=== PATIENT | male | born 1950 | race African-American/Black ===

== ENCOUNTER 2022-07-25 09:23 | Outpatient (CLI) | payer MEDICARE, SELFPAY ==
[2022-07-25 10:38] LABS: Alanine Aminotransferase 15 U/L (6-50); Alkaline Phosphatase 61 U/L (38-126); Anion Gap 7 mmol/L (8-16); Aspartate Amino Transferase 16 U/L (17-59); Bilirubin,Total 1.1 mg/dL (0.2-1.3); Blood Urea Nitrogen 14 mg/dL (9-20); Calcium 8.7 mg/dL (8.4-10.2); Carbon Dioxide 28 mmol/L (22-30); Chloride 103 mmol/L (98-107); Cholesterol 118 mg/dL (0-200); Estimated Glomerular Filt Rate > 60; Glucose 281 mg/dL (65-110); HDL Direct 25 mg/dL; Potassium 3.7 mmol/L (3.4-5.0); Sodium 138 mmol/L (137-145); Triglycerides 181 mg/dL (<150)
[2022-07-25 10:50] LABS: LDL Cholesterol Direct 55 mg/dL
[2022-07-25 11:46] LABS: Folic Acid 6.9 ng/mL (2.76->20)
[2022-07-25 12:13] LABS: Vitamin D 25 Hydroxy 20.6 ng/mL
[2022-07-25 12:23] LABS: Microalbumin Urine Random > 1140.0 mg/L (0-16.7)
== END 2022-07-25 09:24 | disposition home or self-care (01) ==
LOC: ANHLAB 09:35
PROVIDERS: Visit Provider Nurse Practitioner Family
DX: E11.29 Type 2 diabetes mellitus with other diabetic kidney complication (principal); E11.65 Type 2 diabetes mellitus with hyperglycemia; E78.5 Hyperlipidemia, unspecified; I10 Essential (primary) hypertension; R80.9 Proteinuria, unspecified; Z79.4 Long term (current) use of insulin
CPT/HCPCS: 36415; 80053; 80061; 82043; 82306; 82607; 82746; 84443

== ENCOUNTER 2022-10-12 12:56 | Outpatient (CLI) | payer MEDICARE, SELFPAY ==
--- NOTE | ~2022-10-12 | US_ITS ---
US renal BI 10/12/2022 13:49 Procedure: Realtime transabdominal ultrasound of the kidneys and bladder. Indication: Type 2 diabetes Comparison: No prior studies for comparison. Findings: Renal echotexture is normal bilaterally without hydronephrosis, contour deforming mass or r enal calculus. The right kidney measures 10.6 cm and left kidney measures 11.5 cm. Bladder within no rmal limits. Impression: 1: Unremarkable renal ultrasound. No stones, masses or hydronephrosis. Reviewed, dictated and finalized at location A. RNATIONAL ACCOUNT REPRESENTATIVE Impression: 1: Unremarkable renal ultrasound. No stones, masses or hydronephrosis.
[2022-10-12 14:58] LABS: Albumin Level 4.2 g/dL (3.5-5.1); Anion Gap 7 mmol/L (8-16); Blood Urea Nitrogen 9 mg/dL (9-20); Calcium 8.7 mg/dL (8.4-10.2); Carbon Dioxide 28 mmol/L (22-30); Chloride 100 mmol/L (98-107); Estimated Glomerular Filt Rate > 60; Glucose 234 mg/dL (65-110); Phosphorus 3.5 mg/dL (2.5-4.5); Potassium 4.1 mmol/L (3.4-5.0); Sodium 135 mmol/L (137-145)
[2022-10-12 15:08] LABS: Creatinine Urine 126.8 mg/dL
[2022-10-12 15:14] LABS: Sodium Urine Random 86 meq/L
[2022-10-12 15:23] LABS: Eosinophil Urine None Seen % (None Seen)
[2022-10-12 15:30] LABS: Complement C3 139 mg/dL (88-165)
[2022-10-12 15:45] LABS: Total Protein Urine Random 264 mg/dL; Ur Ttl Prot Creatinine Ratio 2.08 mg/mg (0-0.20)
[2022-10-16 17:37] LABS: Albumin 3.7 g/dL (3.8-4.8); Alpha 1 Globulin 0.3 g/dL (0.2-0.3); Alpha 2 Globulin 0.9 g/dL (0.5-0.9); Beta 1 Globulin 0.4 g/dL (0.4-0.6); Gamma Globulin 1.1 g/dL (0.8-1.7); Protein, Total 6.8 g/dL (6.1-8.1)
[2022-10-16 17:59] LABS: Anti Glomerular Basement Memb <1.0 AI (<1.0)
[2022-10-18 09:43] LABS: ANCA Screen Negative (Negative)
[2022-10-19 20:41] LABS: Creatinine, Random Urine 118 mg/dL (20-320); Total Protein/Creatinine Ratio 1593 mg/g creat (25-148)
== END 2022-10-12 12:57 | disposition home or self-care (01) ==
PROVIDERS: PCP Internal Medicine; Visit Provider Internal Medicine Nephrology
DX: E11.29 Type 2 diabetes mellitus with other diabetic kidney complication (principal); R80.8 Other proteinuria; I10 Essential (primary) hypertension
CPT/HCPCS: 36415; 76775; 80069; 82570; 83520; 84155; 84156; 84165; 84166; 84300; 85999; 86036; 86038; 86160; 86225

== ENCOUNTER 2022-12-15 13:30 | Outpatient (CLI) | payer MEDICARE, SELFPAY ==
--- NOTE | ~2022-12-15 | CT_ITS ---
EXAMINATION: CT lung screening DATE: 12/15/2022 14:46 INDICATION: NICOTINE DEPENDENCE TECHNIQUE: Computed tomography (CT) of the chest was performed without intravenous contrast. Addition al 3D reconstructions utilizing coronal maximum intensity projection (MIP) were performed. Automated exposure control and iterative reconstruction technique were employed. The dose-length product was 10 1.75 mGy-cm. COMPARISON: None FINDINGS: 2-3 mm nodule in the superior segment of the left upper lobe. Mild dependent atelectasis in the bilat eral lower lobes. No pneumonia, pulmonary edema or pleural effusion. Heart size normal. Atherosclerot ic coronary artery calcifications. Aortic valve calcification. Additional atherosclerotic calcific a cyst along the normal caliber thoracic aorta. No pathologically enlarged thoracic lymphadenopathy. Vi sualized upper abdomen is unremarkable. Mild thoracic dextrocurvature with moderate spondylosis. Ther e are bridging osteophytes at multiple levels in the spine, consistent with diffuse idiopathic skelet al hyperostosis (DISH). IMPRESSION: 1. Lung-RADS category 2: Benign appearance or behavior. Continue annual screening with noncontrast lo w-dose chest CT in 12 months. Reviewed, dictated and finalized at location A. SERVICE VENDING DRIVER IMPRESSION: 1. Lung-RADS category 2: Benign appearance or behavior. Continue annual screeni ng with noncontrast low-dose chest CT in 12 months.
== END 2022-12-15 13:31 | disposition home or self-care (01) ==
PROVIDERS: PCP Internal Medicine; Visit Provider Internal Medicine
DX: Z12.2 Encounter for screening for malignant neoplasm of respiratory organs (principal); Z87.891 Personal history of nicotine dependence
CPT/HCPCS: 71271

== ENCOUNTER 2023-03-19 11:27 | Outpatient (CLI) | payer MEDICARE, SELFPAY ==
[2023-03-19 12:13] LABS: Albumin Level 4.2 g/dL (3.5-5.1); Anion Gap 4 mmol/L (8-16); Blood Urea Nitrogen 13 mg/dL (9-20); Calcium 9.1 mg/dL (8.4-10.2); Carbon Dioxide 31 mmol/L (22-30); Chloride 106 mmol/L (98-107); Estimated Glomerular Filt Rate > 60; Glucose 147 mg/dL (65-110); Phosphorus 3.6 mg/dL (2.5-4.5); Potassium 4.8 mmol/L (3.4-5.0); Sodium 141 mmol/L (137-145)
[2023-03-19 12:14] LABS: Creatinine Urine 62.2 mg/dL; Total Protein Urine Random 86 mg/dL; Ur Ttl Prot Creatinine Ratio 1.38 mg/mg (0-0.20)
== END 2023-03-19 11:28 | disposition home or self-care (01) ==
LOC: ANHLAB 11:28
PROVIDERS: PCP Internal Medicine; Visit Provider Internal Medicine Nephrology
DX: R80.9 Proteinuria, unspecified (principal); E11.9 Type 2 diabetes mellitus without complications; I10 Essential (primary) hypertension
CPT/HCPCS: 36415; 80069; 82570; 84156

== ENCOUNTER 2023-07-23 12:36 | Outpatient (CLI) | payer MEDICARE, SELFPAY ==
[2023-07-23 13:36] LABS: Creatinine Urine 78.9 mg/dL; Total Protein Urine Random 87 mg/dL
[2023-07-23 14:18] LABS: Albumin Level 4.3 g/dL (3.5-5.1); Anion Gap 4 mmol/L (8-16); Blood Urea Nitrogen 11 mg/dL (9-20); Calcium 9.5 mg/dL (8.4-10.2); Carbon Dioxide 28 mmol/L (22-30); Chloride 107 mmol/L (98-107); Estimated Glomerular Filt Rate > 60; Glucose 91 mg/dL (65-110); Phosphorus 3.7 mg/dL (2.5-4.5); Potassium 4.4 mmol/L (3.4-5.0); Sodium 139 mmol/L (137-145)
== END 2023-07-23 12:37 | disposition home or self-care (01) ==
PROVIDERS: PCP Internal Medicine; Visit Provider Internal Medicine Nephrology
DX: E11.9 Type 2 diabetes mellitus without complications (principal); I10 Essential (primary) hypertension; R80.9 Proteinuria, unspecified
CPT/HCPCS: 36415; 80069; 82570; 84156

== ENCOUNTER 2023-11-27 10:46 | Outpatient (CLI) | payer MEDICARE, SELFPAY ==
[2023-11-27 12:00] LABS: Cholesterol 130 mg/dL (0-200); HDL Direct 30 mg/dL; Triglycerides 179 mg/dL (<150)
[2023-11-27 12:00] LABS: Creatinine Urine 81.3 mg/dL; Total Protein Urine Random 189 mg/dL; Ur Ttl Prot Creatinine Ratio 2.32 mg/mg (0-0.20)
[2023-11-27 12:02] LABS: Anion Gap 7 mmol/L (8-16); Blood Urea Nitrogen 10 mg/dL (9-20); Carbon Dioxide 26 mmol/L (22-30); Chloride 106 mmol/L (98-107); Estimated Glomerular Filt Rate > 60; Glucose 142 mg/dL (65-110); Phosphorus 4.2 mg/dL (2.5-4.5); Potassium 3.7 mmol/L (3.4-5.0); Sodium 139 mmol/L (137-145)
[2023-11-27 12:11] LABS: LDL Cholesterol Direct 70 mg/dL
[2023-11-27 12:32] LABS: Creatinine Urine 84.2 mg/dL
[2023-11-27 13:57] LABS: MALB Creatinine Ratio 799.3 mg/g (0-30)
== END 2023-11-27 10:47 | disposition home or self-care (01) ==
LOC: ANHLAB 10:51
PROVIDERS: PCP Internal Medicine; Referring Provider Internal Medicine; Visit Provider Internal Medicine Nephrology
DX: R80.9 Proteinuria, unspecified (principal); I10 Essential (primary) hypertension; E11.65 Type 2 diabetes mellitus with hyperglycemia; Z79.4 Long term (current) use of insulin
CPT/HCPCS: 36415; 80061; 80069; 82043; 82570; 84156

== ENCOUNTER 2024-03-31 10:29 | Outpatient (CLI) | payer MEDICARE, SELFPAY ==
[2024-03-31 12:04] LABS: Alanine Aminotransferase 10 U/L (6-50); Albumin Level 4.4 g/dL (3.5-5.1); Albumin Level 4.6 g/dL (3.5-5.1); Alkaline Phosphatase 48 U/L (38-126); Anion Gap 11 mmol/L (4-12); Anion Gap 9 mmol/L (4-12); Aspartate Amino Transferase 18 U/L (17-59); Bilirubin,Total 2.3 mg/dL (0.2-1.3); Blood Urea Nitrogen 15 mg/dL (9-20); Calcium 9.6 mg/dL (8.4-10.2); Calcium 9.7 mg/dL (8.4-10.2); Carbon Dioxide 25 mmol/L (22-30); Carbon Dioxide 26 mmol/L (22-30); Chloride 106 mmol/L (98-107); Chloride 107 mmol/L (98-107); Cholesterol 133 mg/dL (0-200); Estimated Glomerular Filt Rate > 60; Glucose 73 mg/dL (65-110); Glucose 75 mg/dL (65-110); HDL Direct 32 mg/dL; Phosphorus 4.2 mg/dL (2.5-4.5); Potassium 3.8 mmol/L (3.4-5.0); Potassium 3.9 mmol/L (3.4-5.0); Sodium 141 mmol/L (137-145); Sodium 143 mmol/L (137-145); Triglycerides 147 mg/dL (<150)
[2024-03-31 12:05] LABS: Hemoglobin A1C 6.8 % (<5.7)
[2024-03-31 12:11] LABS: Creatinine Urine 145.2 mg/dL; Total Protein Urine Random 181 mg/dL; Ur Ttl Prot Creatinine Ratio 1.25 mg/mg (0-0.20)
[2024-03-31 12:16] LABS: LDL Cholesterol Direct 77 mg/dL
[2024-03-31 12:26] LABS: Creatinine Urine 145.9 mg/dL
[2024-03-31 12:29] LABS: Appearance Urine Clear (Clear); Bacteria Urine None Seen /hpf; Bilirubin Urine Negative (Negative); Blood Urine Negative (Negative); Color Urine Yellow (Yellow); Glucose Urine UA 3+ mg/dL (Negative); Ketones Urine 1+ mg/dL (Negative); Leukocyte Esterase Ur Negative LEU/UL (Negative); Need Manual Microscopic Reviewed; Nitrate Urine Negative (Negative); Protein Urine 2+ mg/dL (Negative); RBC Urine 0-2 /hpf (0-2); Squamous Epithelial Cell Urine Few /hpf (Few); WBC Urine 0-5 /hpf (0-3)
[2024-03-31 12:36] LABS: Prostate Specific Antigen 2.1 ng/mL (< OR = 4.0)
[2024-03-31 12:59] LABS: Specific Grav Ur 1.038 (1.001-1.035)
[2024-03-31 13:01] LABS: Add Urine Microscopic? YES
[2024-03-31 14:26] LABS: MALB Creatinine Ratio 516.6 mg/g (0-30); Microalbumin Urine Random 753.7 mg/L (0-16.7)
== END 2024-03-31 10:30 | disposition home or self-care (01) ==
PROVIDERS: PCP Internal Medicine; Referring Provider Internal Medicine; Visit Provider Internal Medicine Nephrology
DX: E11.9 Type 2 diabetes mellitus without complications (principal); I10 Essential (primary) hypertension; R80.9 Proteinuria, unspecified; Z85.46 Personal history of malignant neoplasm of prostate; E78.5 Hyperlipidemia, unspecified
CPT/HCPCS: 36415; 80053; 80061; 80069; 81001; 82043; 82570; 83036; 84153; 84156

== ENCOUNTER 2024-08-04 12:51 | Outpatient (CLI) | payer MEDICARE, SELFPAY ==
[2024-08-04 13:49] LABS: Anion Gap 8 mmol/L (4-12); Blood Urea Nitrogen 14 mg/dL (9-20); Calcium 8.9 mg/dL (8.4-10.2); Carbon Dioxide 26 mmol/L (22-30); Chloride 107 mmol/L (98-107); Estimated Glomerular Filt Rate > 60; Glucose 91 mg/dL (65-110); Phosphorus 3.5 mg/dL (2.5-4.5); Potassium 4.1 mmol/L (3.4-5.0); Sodium 141 mmol/L (137-145)
[2024-08-04 14:10] LABS: Creatinine Urine 67.2 mg/dL; Total Protein Urine Random 82 mg/dL; Ur Ttl Prot Creatinine Ratio 1.22 mg/mg (0-0.20)
== END 2024-08-04 12:52 | disposition home or self-care (01) ==
LOC: ANHLAB 12:55
PROVIDERS: PCP Internal Medicine; Visit Provider Internal Medicine Nephrology
DX: R80.9 Proteinuria, unspecified (principal); E11.9 Type 2 diabetes mellitus without complications; I10 Essential (primary) hypertension
CPT/HCPCS: 36415; 80069; 82570; 84156

== ENCOUNTER 2024-12-29 10:50 | Outpatient (CLI) | payer MEDICARE, SELFPAY ==
[2024-12-29 12:03] LABS: Albumin Level 4.2 g/dL (3.5-5.1); Anion Gap 10 mmol/L (4-12); Blood Urea Nitrogen 13 mg/dL (9-20); Calcium 9.5 mg/dL (8.4-10.2); Carbon Dioxide 24 mmol/L (22-30); Chloride 107 mmol/L (98-107); Estimated Glomerular Filt Rate > 60; Glucose 159 mg/dL (65-110); Phosphorus 4.1 mg/dL (2.5-4.5); Sodium 141 mmol/L (137-145)
[2024-12-29 12:18] LABS: Creatinine Urine 63.6 mg/dL; Total Protein Urine Random 91 mg/dL; Ur Ttl Prot Creatinine Ratio 1.43 mg/mg (0-0.20)
--- OUTSIDE RECORDS SUMMARY | 2024-12-29 12:49 | XMS_ITS | Encounter Summary ---
Author Organization [facility] Address [facility] [place] [address] Care Team Providers Care Sewing Machines Salesperson Name Role Phone Rui Arndt MD Primary Care Provider Encounter Details Date Type Department Care Team (Late st Contact Info) Description 04/27/2014 Abstract [facility] CONVERSION [address] [place] [address] , Generic ConversionMD Social History Tobacco Use Types Packs/Day Years Used Date Smoking Tobacco: Never Assessed Sex and Gender Information Value Date Recorded Sex Assigned at Not on file Legal Sex Male 8:03 PM CDT Gender Identity Not on file Sexual Orientation Not on file documented as of this encounter Plan of Treatment Not on file documented as of this encounter Visit Diagnoses Not on filedocumented in this encounter Care Teams Sewing Machines Salesperson Relationship Specialty Start Date End Date Rui Arndt MD PCP - General INTERNAL MEDICINE 04/03/20 documented as of this encounter
--- OUTSIDE RECORDS SUMMARY | 2024-12-29 12:49 | XMS_ITS | Clinical Summary ---
Author Organization [facility] Address [address] [place] [id number] Care Team Providers Care Food Service Ambassador Name Role Phone Rui Arndt MD Primary Care Provider [phone] Allergies No known active allergies Medications clopidogreL (PLAVIX) 75 mg tablet Take 1 tablet (75 mg total) by mouth daily 09/06/20 22 Active dulaglutide (TRULICITY) 1.5 mg/0.5 mL pen injector Inject 0.5 mL (1.5 mg total) under the skin once a week Active Jardiance 25 mg tablet Take 1 tablet (25 mg total) by mouth daily 11/12/19 24 Active glimepiride (AMARYL) 2 mg tablet Take 0.5 tablets (1 mg total) by mouth daily before breakfast 10/17/19 24 Active irbesartan (AVAPRO) 300 mg tablet Take 1 tablet (300 mg total) by mouth daily 08/09/20 22 Active metFORMIN (GLUCOPHAGE) 500 mg tablet Take 1 tablet (500 mg total) by mouth daily with breakfast 10/30/19 24 Active metoprolol XL (TOPROL-XL) 50 mg extended release tablet Take 1 tablet (50 mg total) by mouth daily 09/14/20 22 Active rosuvastatin (CRESTOR) 40 mg tablet Take 1 tablet (40 mg total) by mouth daily 09/08/20 22 Active Ozempic 1 mg/dose (4 mg/3 mL) pen injector injection Inject 1 mg under the skin every 7 days 10/31/19 24 Active cholecalcifero l (VITAMIN D-3) 2000 unit capsule cholecalciferol (vitamin D3) 50 mcg (2,000 unit) capsule Take by oral route. Activ e glyburide-metf ormin (GLUCOVANCE) 5-500 mg per tablet glyburide 5 mg-metformin 500 mg tablet TAKE 2 TABLETS BY MOUTH TWICE A DAY Active sildenafiL (VIAGRA) 100 mg tablet TAKE 1 TABLET BY MOUTH an hour before sexual activity NEEDED 12/25/19 24 Active polyethylene glycol 236-22.74-6.74 -5.86 gram solution 05/09/20 24 Active Baqsimi 3 mg/actuation spray,non-aero lesly 03/07/20 24 Active alprostadiL (Edex) 10 mcg injection Take 1 kit by intracavernosal route. Active Active Problems Problem Noted Date Diagnosed Date Neovascular glaucoma of left eye, severe stage 0 11/23/2023 Assessment & Plan (09/12/2024 4:34 PM CREDIT CONTROL ADMINISTRATOR): POM#4 s/p dCPC OS - IOP numerically hypotonous while on cosopt - doing well otherwise - Told he may have glaucoma OD - previously only addressed urgent laser needs. Can get baseline testing OD as well. Stop cosopt Keep follow up with [facility] Follow up in 3-4 mo for baseline glaucoma testing (HVF 24-2 OD, RNFL/GCL OU) Assessment & Plan (07/04/2024 11:28 AM CDT): POM#1 s/p dCPC OS - IOP stable a21 - doing well Finished pred forte (PF) today Continue cosopt BID OS Follow up in 2 mo for intraocular pressure (IOP) check at [facility] With Dr Mitchell at [facility] thereafter Assessment & Plan (06/13/2024 10:11 AM CDT): POW#1 s/p dCPC OS - IOP improved to 21 - doing well - taper PF 3-2-1 - follow 4 weeks, continue glaucoma drops Assessment & Plan (06/02/2024 12:47 PM CDT): NVG OS IOP increased again Angle closed, chronic NVI On 2 classes Plan for dCPC OS Start PF QID Follow 1 week Assessment & Plan (12/07/2023 11:05 AM CREDIT CONTROL ADMINISTRATOR): POW1 status post (s/p) clinic diode left eye (OS) Intraocular pressure (IOP) 48 --> 16, doing well on pred forte (PF) Plan Start pred forte (PF) taper 3-2-1 weekly Resume cosopt BID left eye (OS) given severe cupping, if low teens at next can consider discontinuing cosopt, if stable can extend or refer to optom RTC 3-4 months, intraocular pressure (IOP) check Assessment & Plan (11/30/2023 12:27 PM CREDIT CONTROL ADMINISTRATOR): Here for dCPC OS Assessment & Plan (11/23/2023 4:04 PM CREDIT CONTROL ADMINISTRATOR): NVG OS H/o BRVO OS S/p SNEHAL with [facility] Sunday No NVI but NVA and total angle closure Plan for dCPC in clinic next week Continue max drops Essential hypertension 09/14/2022 Hyperlipidemia 09/14/2022 Cerebrovascular accident (CVA) of thalamus 04/05 Atrial flutter 03/15/2009 Diabetes mellitus 03/15/2009 Surgical History Surgery Date Site/Laterality Comments RETINAL LASER PROCEDURE Social History Tobacco Use Types Packs/Day Years Used Date Smoking Tobacco: Every Day Cigarettes Tobacco Cessation:Ready to Q uit: Not Asked; Counseling Given: Not Answered Sex and Gender Information Value Date Recorded Sex Assigned at Not on file Legal Sex Male 8:16 AM CREDIT CONTROL ADMINISTRATOR Gender Identity Not on file Sexual Orientation Not on file Obstetrics History Plan of Treatment Health Maintenance Due Date Last Done Comments Albumin Creatinine Ratio, Urine 1951 Colon Cancer Screening-Colonoscopy 1951 Depression Screening 1951 Fall Risk Assessment 1951 Hemoglobin A1C 1951 Hepatitis C Screening 1951 Prostate Cancer Screening-PSA 1951 eGFR 1951 Dilated Eye Exam 1951 Foot Exam 1951 Lipid Panel 1951 DTaP/Tdap/Td Vaccine (1 - Tdap) 1962 Hepatitis B Screening 1969 Zoster Vaccine (1 of 2) 2001 Abdominal Aortic Aneurysm (AAA) Screen 2016 Well Visit 65+ 2016 Covid-19 Vaccine ( season) 2024, 11/29/2020 Influenza Vaccine (#1) 2024 Pneumococcal vaccine 65+ Completed 06/18/2017, 06/[address] [facility] MEDICARE ADVANTAGE [facility] MEDICARE Address: [facility] [id number] [place] [id number] Care Teams Food Service Ambassador Relationship Specialty Start Date End Date Rui Arndt MD [address] [place] [address] PCP - General Internal Medicine 11/22/23
--- OUTSIDE RECORDS SUMMARY | 2024-12-29 12:49 | XMS_ITS | Clinical Summary ---
Author Organization [facility] Address [address] [place] [address] Care Team Providers Care Special Education Resource Teacher Name Role Phone Rui Arndt MD Primary Care Provider [phone] Allergies No known active allergies Medications insulin degludec (TRESIBA FLEXTOUCH) 200 UNIT/ML injection (PEN) Inject 34 Units into the skin every morning. Active metoprolol succinate ER 50 MG 24 hr tablet Take 50 mg by mouth daily. Active glyBURIDE-metFO RMIN 5-500 MG tablet Take 1 tablet by mouth 2 (two) times daily with meals. Active irbesartan 300 MG tablet Take 300 mg by mouth daily. Active rosuvastatin 40 MG tablet Take 40 mg by mouth nightly at bedtime. Active niacin 500 MG CR capsule Take 500 mg by mouth nightly at bedtime. Active Dulaglutide (TRULICITY) 1.5 MG/0.5ML Solution Pen-injector Inject 1.5 mg into the skin every 7 days. On Wednesdays Active Active Problems Problem Noted Date Diagnosed Date Thalamic stroke ([facility]) 04/05/2020 Weakness 04/03/2020 Immunizations Name Administration Dates Next Due PFIZER COVID-19 (ORIGINAL FO RMULATION, PURPLE CAP) mRNA, LNP-S, PF, 30 MCG/0.3 ML DOSE 12/20/2020,11/29/2020 Family History Medical History Relation Comments Diabetes Mother Relation Status Comments Father Mother Social History Tobacco Use Types Packs/Day Years Used Date Smoking Tobacco: Every Day Cigarettes Smokeless Tobacco: Never Alcohol Use Standard Drinks/Week Comments Not Currently 0 (1 standard drink = 0.6 oz pur e alcohol) Humiliation, Afraid, Rape, and Kick questionnair e Answer Date Recorded Fear of Current or Ex-Partner No Emotionally Abused No 04/03/2020 Physically Abused No 04/03/2020 Sexually Abused No 04/03/2020 Social Connection and Isolation Panel [NHANES] A nswer Date Recorded Frequency of Communication with Friends and Fami ly Never 04/03/2020 Frequency of Social Gatherings with Friends and Family Never 04/03/2020 Attends Gnosticist Services Never 04/03 Active Member of Clubs or Organizations No 04/03/2020 Attends Club or Organization Meetings Not asked 04/03/2020 Marital Status 04/03/2020 Overall Financial Resource Strain (CARDIA) Answe r Date Recorded Difficulty of Paying Living Expenses Not hard at all 04/03/2020 [facility] Occupat ional Health - Occupational Stress Questionnaire Answer Date Recorded Feeling of Stress Not at all 04/03/2020 Exercise Vital Sign Answer Date Recorde d Days of Exercise per Week 0 days 2019 Minutes of Exercise per Session 0 min 04/03/2020 PRAPARE - Transportation Answer Date Re corded Lack of Transportation (Medical) No 04/03/2020 Lack of Transportation (Non-Medical) No 04/03/2020 Sex and Gender Information Value Date Recorded Sex Assigned at Not on file Legal Sex Male 8:03 PM CDT Gender Identity Not on file Sexual Orientation Not on file Last Filed Vital Signs Vital Sign Reading Time Taken Comments Blood Pressure 120/70 10/14/2023 10:36 AM TOOL AND DIE ENGINEER Pulse 82 10/14/2023 10:36 AM TOOL AND DIE ENGINEER Temperature 36.7 C (98.1 F) 10/14/2023 10:36 AM TOOL AND DIE ENGINEER Respiratory Rate 18 10/14/2023 10:36 AM TOOL AND DIE ENGINEER Oxygen Saturation 100% 10/14/2023 10:36 AM TOOL AND DIE ENGINEER Inhaled Oxygen Concentration - - Weight 72.6 kg (160 lb) 10/14/2023 10:36 AM TOOL AND DIE ENGINEER Height 180.3 cm (5' 11 ) 10/14/2023 10:36 AM TOOL AND DIE ENGINEER Body Mass Index 22.32 10/14/2023 10:36 AM TOOL AND DIE ENGINEER Plan of Treatment Health Maintenance Due Date Last Done Comments Colorectal Cancer Screening Colonoscopy (10 Years) 1951 Hepatitis C 1969 DTaP, Tdap and Td Vaccines ( 1 - Tdap) 1970 Zoster Vaccines (1 of 2) 2001 RSV Immunization or 60+ Years (1 - Risk 60-74 years 1-dose series) 2011 Annual Medicare Wellness Visit 2016 COVID-19 Vaccine (3 - 2023-2 5 season) 2024 12/20/2020, 11/29/2020 Influenza Adult (#1) 2024 Pneumococcal Vaccine: 65+ Years Completed 06/18/2017, 06/26/2016 Meningococcal B Vaccine Aged Out No l onger eligible based on patient's age to complete this topic Meningococcal Vaccine Aged Out No emeli alcira eligible based on patient's age to complete this topic RSV Immunizations Under 20 Months Aged Out No longer eligible b ased on patient's age to complete this topic Insurance [facility] Advance Directives * Full Code (Latest Code Status on File) Date Activated Date Inactivated Comments 04/03/2020 4:59 PM 04/05/2020 4:13 PM Care Teams Special Education Resource Teacher Relationship Specialty Start Date End Date Rui Arndt MD PCP - General INTERNAL MEDICINE 04/03/20
--- OUTSIDE RECORDS SUMMARY | 2024-12-29 12:49 | XMS_ITS | Referral Summary ---
Author Organization [facility] Address [address] [place] [address] Care Team Providers Care Fly Finisher Name Role Phone Rui Arndt MD Primary Care Provider Allergies No known active allergies Medications clopidogreL [...] 11/23/2023 Assessment & Plan (09/12/2024 4:34 PM TANK OFFICER): POM#4 s/p dCPC OS - IOP numerically [...] check at [facility] Mitchell at [facility] thereafter Assessment & Plan (06/13/2024 10:11 AM [...] week Assessment & Plan (12/07/2023 11:05 AM TANK OFFICER): POW1 status post (s/p) clinic diode left [...] check Assessment & Plan (11/30/2023 12:27 PM TANK OFFICER): Here for dCPC OS Assessment & Plan (11/23/2023 4:04 PM TANK OFFICER): NVG OS H/o BRVO OS S/p SNEHAL with [facility] Sunday No NVI but NVA and total angle closure Plan for dCPC in clinic next week Continue max drops Essential hypertension 09/14/2022 Hyperlipidemia 09/14/2022 Cerebrovascular accident (CVA) of thalamus 04/05 Atrial flutter 03/15/2009 Diabetes mellitus 03/15/2009 Social History Tobacco Use Types Packs/Day Years Used Date Smoking Tobacco: Every Day Cigarettes Tobacco Cessation:Ready to Q uit: Not Asked; Counseling Given: Not Answered Sex and Gender Information Value Date Recorded Sex Assigned at Not on file Legal Sex Male 8:16 AM TANK OFFICER Gender Identity Not on file Sexual Orientation Not on file Plan of Treatment Not on file Insurance [facility] MEDICARE ADVANTAGE Care Teams Fly Finisher Relationship Specialty Start Date End Date Rui Arndt MD [address] [place] [address] PCP - General Internal Medicine 11/22/23
--- OUTSIDE RECORDS SUMMARY | 2024-12-29 12:49 | XMS_ITS | Clinical Summary ---
Author Organization [facility] Care Team Providers Care Communications Assistant Name Role Phone Unavailable Primary Care Provider Unavailabl e Immunizations Immunization Administration Dates Next Due Covid-19, Mrna, Lnp-s, Pf, 30 Mcg/0.3 Ml Dose (P fizer) 12/20/2020,11/29/2020 Social History Tobacco Use Types Packs/Day Years Used Date Smoking Tobacco: Never Assessed Sex and Gender Information Value Date Recorded Sex Assigned at Not on file Legal Sex Male 3:15 PM HAND SEWER Gender Identity Not on file Sexual Orientation Not on file Plan of Treatment Health Maintenance Due Date Last Done Comments Hepatitis C Virus (HCV) Screening 1951 TdaP Immunization 1951 Colonoscopy 1996 Colorectal Cancer Screening 1996 Cologuard 2001 Immunochemical Fecal Occult Blood 2001 Zoster Immunization (1 of 2) 2001 Influenza Immunization (#1) 2024 SARS-COV-2 Immunization ( season) 2024 12/20/2020, 11/29/2020 Respiratory Syncytial Virus (RSV) Immunization (Adult) (1 - 1-dose 75+ series) 2026 Pneumococcal Immunization (5 0+ years) Completed 06/18/2017, 06/26/2016 Hepatitis B Immunization Aged Out No longer eligible based on patient's age to complete this topic Meningococcal Immunization (ACWY) Aged Out No longer eligible b ased on patient's age to complete this topic Rotavirus Immunization Aged Out No lo nger eligible based on patient's age to complete this topic
--- OUTSIDE RECORDS SUMMARY | 2024-12-29 12:49 | XMS_ITS | CONTINUITY OF CARE DOCUMENT ---
Author Name weston ontiveros Address Unknown Organization [facility] Address [address] [place] [address] [address] [place] [address] Phone [phone] Care Team Providers Care Water And Gas Helper Name Role Phone Terence Goode MD Unavailable [phone] Rui Arndt MD Unavailable Rui Arndt MD Unavailable PROBLEMS Condition Status Date Provider Notes TOBACCO ABUSE active Yun Stahlschmidt DIABETES MELLITUS active Yun Stahlschmid t HYPERCHOLESTEROLEMIA-LABS PER DR. ARNDT active ? Terence Goode MD ATRIAL FLUTTER CONVERTED TO NSR ON 02/19/2009 active Terence Goode MD HTN-02/13 ENLARGED RIGHT ATRIUM EF 55 active ? Terence Goode MD ENCOUNTERS Date Type Provider Location Encounter Diag nosis - In-person encounter Office Visit Terence Goode MD [facility] HYPERCHOLESTEROLEMI A-LABS PER DR. VASQUESN-02/13 ENLARGED RIGHT ATRIUM EF 55 - In-person encounter Office Visit Terence Goode MD [facility] ATRIAL FLUTTER CONVERTED TO NSR ON 02/19/2009 VITAL SIGNS Date Observation Value Provider blood pressure, diastolic, left arm 68 mm [Hg] Jason Martinez RN blood pressure, systolic, left arm 128 mm [Hg] Jason Martinez RN blood pressure, diastolic, right arm 73 m m[Hg] Jason Martinez RN blood pressure, systolic, right arm 123 m m[Hg] Jason Martinez RN blood pressure, diastolic 68 mm[Hg] Isrrael Martinez RN blood pressure, systolic 128 mm[Hg] Jason Martinez RN pulse rate 78 /min Jason Juan [place] oxygen saturation, oximetry 100 % Jason Goodejody [place] respiratory rate E&M 18 /min Jason wong RN weight E&M 177 [lb_av] Jason Martinez RN blood pressure, diastolic 72 mm[Hg] Isrrael Martinez RN blood pressure, systolic 131 mm[Hg] Jason Juan [place] pulse rate 84 /min Jason Juan [place] oxygen saturation, oximetry 100 % Jason Juan [place] respiratory rate E&M 18 /min Jason wong RN weight E&M 167 [lb_av] Jason Martinez RN ALLERGIES No Known Drug Allergies RESULTS Date Observation Value Provider Reference Range Interpretation Location 5 international normalized ratio (INR) 1.8 Jason Martinez RN 5 prothrombin time (patient) 18.0 s Jason Martinez RN 5 international normalized ratio (INR) 1.5 Ninoska Oneill 5 prothrombin time (patient) 14.8 s Ninoska Oneill 6 coagulation managed by Jason Martinez RN 6 international normalized ratio (INR) 1.4 Shaq Thorneacodelonte 6 prothrombin time (patient) 13.6 s Shaq Manacodelonte 8 coagulation managed by Jason Martinez RN 8 international normalized ratio (INR) 1.5 Jason Martinez RN 8 prothrombin time (patient) 15.1 s Jason Martinez RN 8 coagulation managed by Jason Martinez RN 8 international normalized ratio (INR) 1.5 Shaq Manacop 8 prothrombin time (patient) 15.1 s Shaq Manacop 5 coagulation managed by Gloria Ruiz RN 5 international normalized ratio (INR) 1.5 Shaq Man[place]op 5 prothrombin time (patient) 15.1 s Shaq Thornedheeraj HISTORY OF MEDICATION USE Medication Status Instructions Dates Provider Indications Com ments GLYBURIDE 5 MG ORAL TABLET active take as directed Afua Dee ACTOS 45 MG ORAL TABLET active take one daily Afua Dee NIASPAN 500 MG ORAL TABLET EXTENDED RELEASE active ONE TAB. AT BEDTIME Yun Stahlschmidt CRESTOR 40 MG ORAL TABLET active ONE TAB. DAILY Jason Martinez RN AVAPRO 75 MG ORAL TABLET active ONE TAB. DAILY Yun Staalicemidt METFORMIN HCL 500 MG ORAL TABLET active two tab twice daily Jason Martinez RN DIGOXIN 125 MCG ORAL TABLET completed ONE TAB. DAILY - 5 Terence Goode MD ASPIRIN 81 MG ORAL TABLET completed ONE TAB. DAILY - 1 Afua Luiz COUMADIN TABLET completed 1mg daily with 5mg = 6mg - 5 Terence Goode MD SOCIAL HISTORY Date Observation Value Provider smoking/tobacco cess ation, patient education and counseling yes Jason Martinez RN social history E&M Marital Statu s: E thnicity: Jason Martinez RN social history reviewed E&M reviewed Jason Martinez RN smoking/tobacco cess ation, patient education and counseling yes Terence Goode MD social history E&M Marital Statu s: E thnicity: AmericanMarital Status: L sherry with family/friends E thnicity: Terence Goode MD social history reviewed E&M reviewed Jason Martinez RN physical exercise, frequency, days per week no LinkLogic caffeine use, averag e drinks per day no LinkLogic alcohol use, average drinks per day none LinkLogic number of years as a smoker 10 years or m ore LinkLog smoking status Smoker [facility] MENTAL STATUS Date Observation Value Provider assessment of judgme nt and insight E&M Alert and oriented to time, place and person. Mood and affect are normal. Jason Martinez RN assessment of judgme nt and insight E&M Alert and oriented to time, place and person. Mood and affect are normal. Jason Martinez RN INSURANCE PROVIDERS Payer name Policy type / Coverage type Brody red democrat ID [facility] [id number] Other [id number] TREATMENT PLAN Date Name Performer f/u: O rders: T OBACCO USE CESSATION INTERMEDIATE 3-10 MINUTES (CPT-33816) Terence Goode MD f/u: T he following medications were removed from the medication list: Aspirin 81 Mg Tabs (Aspirin) ..... One tab. daily His updated medication list for this problem includes: Avapro 75 Mg Tabs (Irbesartan) ..... One tab. daily BP today: 128/68 P rior BP: 131/72 (03/22/2009) Terence Goode MD : H is updated medication list for this problem includes: Coumadin Tabs (Warfarin sodium tabs) ..... 5mg take with 2.5mg = 7.5mg dai8ly Aspirin 81 Mg Tabs (Aspirin) ..... One tab. daily Digoxin 0.125 Mg Tabs (Digoxin) ..... One tab. daily Coumadin Tabs (Warfarin sodium tabs) ..... 2.5mg take with 5mg = 7.5mg BP today: 131/72 Prior BP: / () Orders: Piter KG ([id number]) Terence Goode MD Date Name Stress Test - Nuclea r
--- OUTSIDE RECORDS SUMMARY | 2024-12-29 12:49 | XMS_ITS | Clinical Summary ---
Author Organization [facility] Address [address] [place] [id number] Phone Care Team Providers Care Information Technology Data Analyst Name Role Phone Joey Arndt MD Primary Care Provider [phone] Allergies No known active allergies Medications Medication Sig Dispensed Refills Start Date End Date Status clopidogrel (PLAVIX) 75 MG tablet Take 75 mg by mouth 1 (one) time each day 09/06/2022 Active Cholecalciferol 50 MCG (2000 UT) capsule cholecalciferol (vitamin D3) 50 mcg (2,000 unit) capsule Take by oral route. Active cyclobenzaprine (FLEXERIL) 10 MG tablet cyclobenzaprine 10 mg tablet Active diclofenac (VOLTAREN) 75 MG EC tablet diclofenac sodium 75 mg tablet,delayed release Active Trulicity 4.5 MG/0.5ML solution pen-injector INJECT 4.5 MG (0.5 ML) SUBCUTANEOUSLY WEEKLY FOR 3 MONTHS 08/16/2022 Active glyBURIDE-metFORMI N (GLUCOVANCE) 5-500 MG per tablet glyburide 5 mg-metformin 500 mg tablet TAKE 2 TABLETS BY MOUTH TWICE A DAY Active Insulin Lispro (HumaLOG) 100 UNIT/ML solution Humalog U-100 Insulin 100 unit/mL subcutaneous solution Active irbesartan (AVAPRO) 300 MG tablet Take 300 mg by mouth 1 (one) time each day 08/09/2022 Active latanoprost (XALATAN) 0.005 % ophthalmic solution latanoprost 0.005 % eye drops Active leuprolide (Lupron Depot, 3-Month,) 22.5 MG injection Lupron Depot 22.5 mg (3 month) intramuscular syringe kit Inject 22.5 mg every 3 months by intramuscular route. Active metoprolol succinate XL (TOPROL-XL) 50 MG 24 hr tablet Take 50 mg by mouth 1 (one) time each day 09/14/2022 Active niacin (NIASPAN) 500 MG CR tablet niacin ER 500 mg tablet,extended release 24 hr Active rosuvastatin (CRESTOR) 40 MG tablet Take 40 mg by mouth 1 (one) time each day 09/08/2022 Active tadalafil (CIALIS) 20 MG tablet tadalafil 20 mg tablet TAKE 1 TABLET BY MOUTH EVERY DAY NEEDED Active traMADol (ULTRAM) 50 MG tablet tramadol 50 mg tablet A ctive Active Problems Problem Noted Date Diagnosed Date Atrial flutter 09/14/2022 Enthesopathy of hip region 09/14/2022 Essential hypertension 09/14/2022 Essential (primary) hypertension 09/14/2022 Backache 09/14/2022 Hip pain 09/14/2022 Hyperlipidemia 09/14/2022 Hypertriglyceridemia 09/14/2022 Obesity 09/14/2022 Pure hypercholesterolemia 09/14/2022 Smoker 11/15/2021 Erectile dysfunction 02/14/2021 History of cerebrovascular accident 02/14/2021 History of malignant neoplasm of prostate 2020 Cerebrovascular accident 04/12/2020 Cerebrovascular accident of thalamus 04/05/2020 Weakness 04/03/2020 History of atrial flutter 02/11/2018 Atrial flutter 03/15/2009 Diabetes mellitus 03/15/2009 Tobacco dependence syndrome 03/15/2009 Immunizations Name Administration Dates Next Due Pneumococcal Conjugate 13-Valent 06/18/2017 Pneumococcal Polysaccharide 06/26/2016 Family History Medical History Relation Comments Diabetes mellitus Mother Hyperlipidemia Mother Hypertension Mother Pancreatic cancer Mother Relation Status Comments Mother Social History Tobacco Use Types Packs/Day Years Used Date Smoking Tobacco: Every Day Cigarettes 1.5 55 Smokeless Tobacco: Never Tobacco Cessation:Ready to Q uit: No; Counseling Given: Yes Alcohol Use Standard Drinks/Week Comments Not Currently 0 (1 standard drink = 0.6 oz pur e alcohol) Sex and Gender Information Value Date Recorded Sex Assigned at Not on file Gender Identity Not on file Sexual Orientation Not on file Last Filed Vital Signs Vital Sign Reading Time Taken Comments Blood Pressure 136/80 09/18/2022 11:44 AM BINDER SELECTOR Pulse - - Temperature 36.2 C (97.1 F) 09/18/2022 11:44 AM BINDER SELECTOR Respiratory Rate 18 09/18/2022 11:44 AM BINDER SELECTOR Oxygen Saturation - - Inhaled Oxygen Concentration - - Weight 75.8 kg (167 lb) 09/18/2022 11:44 AM BINDER SELECTOR Height 177.8 cm (5' 10 ) 09/18/2022 11:44 AM BINDER SELECTOR Body Mass Index 23.96 09/18/2022 11:44 AM BINDER SELECTOR Plan of Treatment Health Maintenance Due Date Last Done Comments COVID-19 Vaccine ( season) 2024, 11/29/2020 Influenza Vaccine (#1) 2024 Pneumococcal PPSV23/PCV13 65 + Years / High and Highest Risk Completed 06/18/2017, 06/26/2016 Pneumococcal PPSV23/PCV13 65 + Years / Low and Medium Risk Completed 06/18/2017, 06/26/2016 Care Teams Information Technology Data Analyst Relationship Specialty Start Date End Date Joey Arndt MD [address] [phone] PCP - General Internal Medicine 09/14/22
[2024-12-30 05:58] LABS: C-Peptide 4.58 ng/mL (0.80-3.85)
== END 2024-12-29 10:51 | disposition home or self-care (01) ==
PROVIDERS: PCP Internal Medicine; Referring Provider Internal Medicine; Visit Provider Internal Medicine Nephrology
DX: E11.9 Type 2 diabetes mellitus without complications (principal); E11.29 Type 2 diabetes mellitus with other diabetic kidney complication; R80.9 Proteinuria, unspecified; E78.5 Hyperlipidemia, unspecified; Z71.3 Dietary counseling and surveillance; E11.65 Type 2 diabetes mellitus with hyperglycemia; Z79.4 Long term (current) use of insulin; F17.200 Nicotine dependence, unspecified, uncomplicated; I10 Essential (primary) hypertension
CPT/HCPCS: 36415; 80069; 82570; 84156; 84681; 86341

== ENCOUNTER 2025-03-16 14:16 | Outpatient (CLI) | payer MEDICARE, SELFPAY ==
--- NOTE | 2025-03-16 | ECHO_ITS ---
Patient Info Name: Oanh Santiago Age: 74 years : 1950 Gender: Male Ht: 70 in Wt: 157 lbs BSA: 1.88 m2 HR: 79 bpm BP: 135 / 73 mmHg Technical Quality: Good Exam Date: 03/16/2025 2:47 PM Patient Status: unknown Admit Date: 03/16/2025 Exam Type: CA echo doppler color flow Complete two-dimensional, color flow and Doppler transthoracic echocardiogram is performed. Dye Tub Tender: Donya Lacey Attending Provider: Rui Arndt Summary 1. Left ventricular chamber dimension is normal. 2. Left ventricular systolic function is normal, estimated at 65-70. 3. There is moderately increased left ventricular wall thickness. 4. The left ventricular diastolic function is grade I diastolic dysfunction. 5. Right ventricular systolic function is normal. 6. Left atrial chamber dimension is moderately enlarged. 7. Right atrial chamber dimension is mildly enlarged. 8. There is moderate aortic valve stenosis with a peak velocity of 239 cm/s, mean gradient of 13 mmHg, and aortic valve area of 1.5 cm2. 9. There is mild aortic valve regurgitation. 10. There is mild tricuspid valve regurgitation. Left Ventricle Left ventricular chamber dimension is normal. Left ventricular systolic function is normal, estimated at 65-70. There is moderately increased left ventricular wall thickness. The left ventricular diastolic function is grade I diastolic dysfunction. Right Ventricle Right ventricular chamber dimension is normal. Right ventricular systolic function is normal. Left Atria Left atrial chamber dimension is moderately enlarged. Right Atria Right atrial chamber dimension is mildly enlarged. Atrial Septum Intact interatrial septum visualized by color flow imaging. Aortic Valve The aortic valve is trileaflet. There is moderate aortic valve stenosis with a peak velocity of 239 cm/s, mean gradient of 13 mmHg, and aortic valve area of 1.5 cm2. There is mild aortic valve regurgitation. There is moderate aortic valve calcification. Pulmonic Valve The pulmonic valve is not well visualized. There is no pulmonic regurgitation. Mitral Valve There is trace mitral valve regurgitation. The mitral valve annulus is mildly calcified. Tricuspid Valve There is mild tricuspid valve regurgitation. Inferior Vena Cava Normal inferior vena cava with >50% collapse upon inspiration consistent with normal right atrial pressure, 3 mmHg. Aorta The aortic root size at the sinus of Valsalva is normal. Left Ventricular Outflow Tract Name Value Normal LVOT 2D LVOT Diameter 2.0 cm LVOT Doppler LVOT Peak Velocity 94 cm/s LVOT Peak Gradient 3 mmHg LVOT Mean Gradient 2 mmHg LVOT VTI 22 cm LVOT VTI/AV VTI Ratio 0.5 LVOT Stroke Volume 66 ml LVOT CO 4.6 l/min LVOT CI 2.4 l/min/m2 Pulmonic Valve Name Value Normal RVOT Doppler RVOT Peak Velocity 56 cm/s RVOT Peak Gradient 1 mmHg PV Doppler PV Peak Velocity 155 cm/s PV Peak Gradient 10 mmHg Mitral Valve Name Value Normal MV Diastolic Function MV E Peak Velocity 82 cm/s MV A Peak Velocity 108 cm/s MV E/A 0.8 MV Decel Time (PW) 237 ms Tricuspid Valve Name Value Normal TV Regurgitation Doppler TR Peak Velocity 258 cm/s TR Peak Gradient 27 mmHg Estimated PAP/RSVP RA Pressure 3 mmHg <=5 PA Systolic Pressure 30 mmHg <36 RV Systolic Pressure 30 mmHg <36 Aorta Name Value Normal Ascending Aorta Ao Root Diameter (MM) 3.8 cm Ao Root Diam Index (MM) 2.0 cm/m2 Aortic Valve Name Value Normal AV 2D/MM AV Area (Planimetry) 1.1 cm2 AV Doppler AV Peak Velocity 239 cm/s AV Peak Gradient 22 mmHg AV Mean Gradient 13 mmHg AV VTI 45 cm AV Area (Cont Eq VTI) 1.5 cm2 >=3.0 AV Area (Cont Eq Schuyler) 1.2 cm2 AV DI (Schuyler) 0.39 AV Regurgitation 2D LVOT Area 3.0 cm2 Ventricles Name Value Normal LV Dimensions 2D/MM IVS Diastolic Thickness (2D) 1.4 cm 0.6-1.0 LVID Diastole (2D) 2.7 cm 4.2-5.8 LVIW Diastolic Thickness (2D) 1.3 cm 0.6-1.0 LVID Systole (2D) 1.8 cm 2.5-4.0 LVOT Diameter 2.0 cm LV Mass (2D Cubed) 109.92 g 88.00-224.00 LV Mass Index (2D Cubed) 59 g/m2 49-115 Relative Wall Thickness (2D) 0.96 <=0.42 LV Fractional Shortening/Ejection Fraction 2D/MM LV Fractional Shortening (2D) 35 % 25-43 LV EF (2D Teichholz) 66 % LV Diastolic Volume (4C MOD) 40 ml LV EF (4C MOD) 73 % LV Diastolic Volume (2C MOD) 42 ml LV EF (2C MOD) 58 % LV Diastolic Volume (BP MOD) 41 ml 62-150 LV Diastolic Volume Index (BP MOD) 22 ml/m2 34-74 LV Systolic Volume (BP MOD) 14 ml 21-61 LV Systolic Volume Index (BP MOD) 8 ml/m2 11-31 LV EF (BP MOD) 66 % 52-72 LV Diastolic Length (4C) 7.2 cm LV Systolic Length (4C) 5.7 cm LV Stroke Volume (4C MOD) 29 ml Atria Name Value Normal LA Dimensions LA Dimension (MM) 3.8 cm 3.0-4.0 LA Volume (4C A-L) 76 ml LA Volume (BP A-L) 83 ml RA Dimensions RA Systolic Major [place] Length (4C) 4.5 cm 2.1-2.7 RA Area (4C) 16.0 cm2 <=18.0 Report Signatures
--- OUTSIDE RECORDS SUMMARY | 2025-03-16 15:31 | XMS_ITS | CONTINUITY OF CARE DOCUMENT ---
Author Name weston ontiveros Address Unknown Organization [facility] Address [address] [place] [address] [address] [place] [address] Phone [phone] Care Team Providers Care Sales Representative Marine Supplies Name Role Phone Terence Goode MD Unavailable [phone] Rui Arndt MD Unavailable [phone] Rui Arndt MD Unavailable PROBLEMS Condition Status [...] In-person encounter Office Visit Terence Goode MD [place] HYPERCHOLESTEROLEMI A-LABS PER DR. VASQUESN-02/13 ENLARGED RIGHT ATRIUM EF 55 - In-person encounter Office Visit Terence Goode MD [place] [facility] ATRIAL FLUTTER CONVERTED TO NSR ON [...] or m ore LinkLog smoking status Smoker [facility] MENTAL STATUS Date Observation Value Provider [...] Policy type / Coverage type Brody red alliance party ID [facility] [id number] Other [id number] TREATMENT PLAN Date Name Performer f/u: O rders: T OBACCO USE CESSATION INTERMEDIATE 3-10 MINUTES (CPT-94180) Terence Goode MD f/u: T he following [...] Prior BP: / () Orders: Piter KG (CPT-90203) Terence Goode MD Date Name Stress Test - Nuclea r
--- OUTSIDE RECORDS SUMMARY | 2025-03-16 15:31 | XMS_ITS | Clinical Summary ---
Author Organization [facility] Address [address] [place] [phone] Care Team Providers Care Gas Transfer Operator Name Role Phone Rui Arndt MD Primary [...] total) by mouth daily 09/08/20 22 Active cholecalcifero l (VITAMIN D-3) 2000 unit [...] Take 1 kit by intracavernosal route. Active Ozempic 0.25 mg or 0.5 mg (2 mg/3 mL) pen injector injection 12/05/19 25 Active Active Problems Problem Noted Date Diagnosed Date Neovascular glaucoma of left eye, severe stage 0 11/23/2023 Assessment & Plan (01/12/2025 3:07 PM CDT): NVG OS Denies concerns S/p dCPC OS Now off drops and IOP at goal OCT OD with mild thinning HVF OD with IAS Follow annually, sooner for concerns Assessment & Plan (09/12/2024 4:34 PM GTA): POM#4 s/p dCPC OS - IOP numerically [...] check at [facility] With Dr Mitchell at [facility] thereafter Assessment & Plan (06/13/2024 10:11 AM [...] week Assessment & Plan (12/07/2023 11:05 AM GTA): POW1 status post (s/p) clinic diode left [...] check Assessment & Plan (11/30/2023 12:27 PM GTA): Here for dCPC OS Assessment & Plan (11/23/2023 4:04 PM GTA): NVG OS H/o BRVO OS S/p SNEHAL with TRI Sunday No NVI but NVA and total angle closure Plan for dCPC in clinic next week Continue max drops Essential hypertension 09/14/2022 Hyperlipidemia 09/14/2022 Cerebrovascular accident (CVA) of thalamus 04/05 Atrial flutter 03/15/2009 Diabetes mellitus 03/15/2009 Encounters Date Type Department Care Team Description 01/23/2025 Orders Only [facility] Ophthalmology [address] [place] [phone] Dora Mitchell MD Neovascular glaucoma of left eye, severe stage (Primary Dx) 01/12/2025 2:30 PM CDT Office Visit [facility] Ophthalmology [address] [place] [phone] Dora Mitchell MD Neovascular glaucoma of left eye, severe stage (Primary Dx) 01/12/2025 2:20 PM CDT Imaging Exam [facility]hthalmology [address] [place] [phone] Neovascular glaucoma of left eye, severe stage (Primary Dx) 01/12/2025 2:10 PM CDT Imaging Exam [facility] Ophthalmology [address] [place] [address] [place] [phone] Neovascular glaucoma of left eye, severe stage from Last 3 Months Surgical History Surgery Date Site/Laterality Comments RETINAL LASER PROCEDURE Medical History Medical History Date Comments Glaucoma Hypertension Diabetes mellitus (HCC) CVA (cerebral vascular accident) (HCC) Hyperlipidemia Social History Tobacco Use Types Packs/Day Years Used Date Smoking Tobacco: Every Day Cigarettes Tobacco Cessation:Ready to Q uit: Not Asked; Counseling Given: Not Answered Sex and Gender Information Value Date Recorded Sex Assigned at Not on file Legal Sex Male 8:16 AM GTA Gender Identity Not on file Sexual Orientation [...] Vaccine ( season) 2024, 11/29/2020 Influenza Vaccine (Season Ended) 2025 Pneumococcal vaccine 65+ Completed 06/18/2017, 06/08 Procedures Procedure Name Priority Date/Time Associated Diagnosis Comments OCT, OPTIC NERVE - OU - BOTH EYES Routine 01/12/2025 2:42 PM CDT Neovascular glaucoma of left eye, severe stage CALERO VISUAL FIELD - OD - RIGHT EYE Routine 01/12/2025 2:42 PM CDT Neovascular glaucoma of left eye, severe stage from Last 3 Months Results * OCT, Optic Nerve - OU - Both Eyes (01/12/2025 2:42 PM CDT) Anatomical Region Laterality Modality Head Other Narrative 01/12/2025 3:06 PM CDT Right Eye Reliability was good. Left Eye Reliability was good. Notes S thinning Dora Mitchell MD OPHTH TOMOGRAPHY Final Result * [place]ero Visual Field - OD - Right Eye (01/12/2025 2:42 PM CDT) Pattern Deviation OD 2.72 CONTINUUM Mean Deviation OD -3.80 CONTINUUM Anatomical Region Laterality Modality Head Other Narrative 01/12/2025 3:06 PM CDT Fixation was good. Cooperation was good. Reliability was good. Findings include inferior arcuate defect. Mean Deviation was -3.80. Pattern Deviation was 2.72. Dora Mitchell MD OPHTH VISUAL FIELD Final Resu lt from Last 3 Months Insurance [facility] MEDICARE ADVANTAGE [facility] MEDICARE Address: [facility] [address] [place] [address] Care Teams Gas Transfer Operator Relationship Specialty Start Date End Date Rui Arndt MD [address] [place] [phone] PCP - General Internal Medicine 11/22/23
--- OUTSIDE RECORDS SUMMARY | 2025-03-16 15:31 | XMS_ITS | Clinical Summary ---
Author Organization [facility] Care Team Providers Care Inner Diameter Grinder Tool Name Role Phone Unavailable Primary Care Provider Unavailabl e Immunizations Immunization Administration Dates Next Due Covid-19, Mrna, Lnp-s, Pf, 30 Mcg/0.3 Ml Dose (P fizer) 12/20/2020,11/29/2020 Social History Tobacco Use Types Packs/Day Years Used Date Smoking Tobacco: Never Assessed Sex and Gender Information Value Date Recorded Sex Assigned at Not on file Legal Sex Male 3:15 PM REVIEW MANAGER Gender Identity Not on file Sexual Orientation [...]
--- OUTSIDE RECORDS SUMMARY | 2025-03-16 15:31 | XMS_ITS | Data Portability ---
Author Organization [place] [facility] [employer], Main Office Address [address] [place] [address] Assessment No assessment recorded. Plan of Treatment Reminders Order Date Submit Date Provider Last Modified By Organization Details Last Modified Time Details Appointments Medicare Wellness 2024 10:30A Jose R Marcus MD Not available Not available Not available Any 15 2024 02:45P Jose R Marcus MD Not available Not available Not available Lab glycohem oglobin, total, blood [address] (Lab), [address] [place], [address], 01/08/2024 08:44:51 CMP, serum or plasma [address] (Lab), [address] [place], [address], 01/08/2024 08:44:51 microalb umin, urine [address] (Lab), [address] [place], [address], 01/08/2024 08:44:51 lipid panel, serum [address] (Lab), [address] [place], [address], 01/08/2024 08:44:51 PSA, serum or plasma [address] (Lab), [address] [place], [address], 01/08/2024 08:44:51 urinalys is, complete 2023 024 [email or web address] [facility] (Lab), [address] [place], [address], 01/08/2024 08:44:51 Referral None recorded . Procedures colonosc opy screenin g (PROC) - No auth required 2023 024 [email or web address] Champ Infante MD, [address] [facility], [address], [place], [address], 05/20/2024 08:42:07 Surgeries None recorded . Imaging US, echocard iogram [address], [address], [place], [address], 03/10/2025 11:01:38 LDCT, chest, for lung cancer screenin g 2023 024 [facility] ([facility]), [address] [place], [address], 05/06/2024 20:35:18 Medication Orders sildenaf [place] 100 mg tablet 2023 [place], [address] [place], [id number], 12/25/2023 18:27:40 Patient TargetsNo targets recorded. Patient Instructions Encounter Date Encounter Id Patient Instructions Last Modified By Organization Details Last Modified Time 08/02/2023 [id number] risk assessment* Not availabl e 08/02/2023 14:48:01 Personalized [facility] Plan and Screening Recommendations Advance Directives - Do you have one? No You have indicated that you are capable of preparing your advance care directive I recommend consulting with an Apprentice Funeral Director, family member, or friend to assist you. Not interested at this time Advance Directives - Do we have your advance directive on file in your health record? Primary Prevention/Interven tion (prevents or decreases the chance of common diseases from occurring) Smoking Risk: Smoker Continue to consider stopping smoking and call if we can assist you Alcohol Misuse Screening: Negative Weight: Appropriate Physical activity: Need more exercise/physical activity Nutrition: Average Refer to attached handout Heart-Healthy Diet: After Your Visit Refer to attached handout DASH Diet: After Your Visit Recommend consultation with a hazmat cdl driver Eat heart healthy diet Fall Risk (screened today): Low Vaccines Pneumococcal: No further needed Influenza: Recommended today, but you have declined Chronic Disease Risks Stroke: Intermediate Risk Active diagnosis, Continue current treatment plan Heart Attack: Intermediate Risk Active diagnosis, Continue current treatment plan Clogging of the Arteries: Intermediate Risk Active diagnosis, Continue current treatment plan Diabetes: Intermediate Risk Active diagnosis, Continue current treatment plan Secondary Prevention/Interven tion (detects treatable diseases before they may cause symptoms, disability, or ) Prostate Cancer Screening: Your next PSA in: No PSA screening necessary up to date Colon Cancer Screening: Colonoscopy In: Ordered Recomme nded Recommended today, but you have declined No screening necessary due 2023 Date Screening Last Performed: ___2019____ Eye Disease Screening: Ordered Recommended today Recommended today, but you have declined No Eye exam necessary Your next exam in: goes yearly Dementia Risk: Low I have no recommendations Depression Screening: Negative Recommend additional evaluation and/or treatment as noted above Recommend follow appointment to further evaluate Recommend Behavioral Health referral Active diagnosis, Continue current treatment plan I have no recommendations [email or web address] Not available 08/02/2023 14:47:23 04/29/2024 [id number] dementia rating scale-2* Not available 04/29/2024 15:38:05 alcohol misuse* Not available 04/29/2024 15:38:04 depression screening* Not available 04/29/2024 15:38:04 multi-dimensiona l health assessment questionnaire* Not available 04/29/2024 15:38:04 [place] Advance Directives Not available 04/29/2024 15:38:04 advance directiv es: care instructions Not available 04/29/2024 15:38:04 advance care planning: care instructions Not available 04/29/2024 15:38:04 Personalized Hea lth Plan and Screening Recommendations Advance Directives - Do you have one? Advance Directives - Do we have your advance directive on file in your health record? Primary Prevention/Interven tion (prevents or decreases the chance of common diseases from occurring) Smoking Risk: Alcohol Misuse Screening: Weight: Physical activity: Nutrition: Fall Risk (screened today): Vaccines Pneumococcal: # Ordered Recommend ed today Recommended today, but you have declined No further needed Your next one in: Influenza: # Ordered Recommend ed today Recommended today, but you have declined Your next one in the fall of this year Chronic Disease Risks Stroke: Active diagnosis, Continue current treatment plan Heart Attack: Active diagnosis, Continue current treatment plan Clogging of the Arteries: Active diagnosis, Continue current treatment plan Diabetes: Active diagnosis, Continue current treatment plan Secondary Prevention/Interven tion (detects treatable diseases before they may cause symptoms, disability, or ) Prostate Cancer Screening: Colon Cancer Screening: Date Screening Last Performed: Eye Disease Screening: Your next exam in:# Ordered Recomm ended today Recommended today, but you have declined No Eye exam necessary Dementia Risk: Depression Screening: Active diagnosis, Continue current treatment plan [email or web address] Not available 04/29/2024 14:56:47 Reason for Referral None Reported. Results Created Date Observation Date Name Description Value Unit Range Abnormal Flag Note LastModifiedBy Organization Detail LastModifiedTime 05/06/20 24 05/06/2024 LDCT, chest , for lung giovannyce r [facility] [place] [address] Patien t Name: PITA KRUEGER Access ion #: [id number] Sex: M : 1949 7 Dictat ed By: Flor Appiah Attend ing Physic frantz: ROSA MARCUS Orderi ng Physic frantz: ROSA MARCUS ER Exam Date: 2023 14:36 PM Exam Name: CT LOW DOSE CNCR SCREEN ING Admitt ing Diagno sis(es ): CT Chest withou t intrav enous contra st INDICA TION: nicoti ne depend ence TECHNI QUE: Multid etecto r spiral CT of the chest was perfor med from the lung apices to the upper abdome n. Axial, lai l and sagitt al multip lanar reform ats were perfor med. Radiat ion Dose : 1. Chest: CTDI volume is 1.2 mGy. Dose-l ength produc t is 43.1 mGy*cm The dose indica tors for CT are the volume Comput ed Tomogr aphy (CT) Dose Index (CTDIv ol) and the Dose Length Produc t (DLP), and are measur ed in units of mGy and mGy-cm , respec tively . These indica tors are not patien t dose, but values genera zoë from the CT scanne r acquis ition factor s. The report includ es radiat ion exposu re data for exposu res receiv ed during this examin ation. Compar gris: CT LOW DOSE CNCR SCREEN ING on DOS: 2, CT LOW DOSE CNCR SCREEN ING on DOS: 0 Findin gs: Lower neck: Normal thyroi d. Lungs: No focal consol idatio n, pleura l effusi on or pneumo thorax . Depend ent atelec tasis. Heart/ Vascul ar Struct ures: Cardio megaly . Lai ry artery calcif icatio ns. Vascul ar calcif icatio ns of the aorta. Ectasi a of the ascend ing thorac ic aorta measur es 3.8 cm. Page 1 [facility] [place] [address] [place] [address] Patien t Name: PITA KRUEGER Access ion #: [id number] Sex: M : 1949 7 Dictat ed By: Flor Appiah Attend ing Physic frantz: ANGELINE GUERRERO Physic frantz: ROSA MARCUS Exam Date: 2023 14:36 PM Exam Name: CT LOW DOSE CNCR SCREEN ING Admitt ing Diagno sis(es ): Lymph Nodes: No adenop athy Pleura : No pleura l effusi on or signif icant pneumo thorax . Muscul oskele ginette: No acute osseou s abnorm ality. Degene rative change s of the spine. Soft tissue s: Normal . Upper abdome n: Limite d portio ns of the upper abdome n are unrema rkable . IMPRES LUCINDA: No acute or suspic ious thorac ic findin gs. LUNG RADS Catego ry 1: Contin ue annual screen ing with LDCT Radiat ion optimi zation : All CT scans at this facili ty use at least one of these dose optimi zation techni ques: automa zoë exposu re contro l mA and/or kV adjust ment per patien t size (inclu marilyn target ed exams where dose is matche d to clinic al indica tion) or iterat forest recons tructi on. Electr onical ly Signed by: Flor Appiah at 2023 19:32: 49 PM Page 2 [facility] (Imaging) [address] [facility], [place], [address], 07/30/2024 15:29:51 07/31/20 24 05/20/2024 colon oscop y scree phoebe (PROC ) No observ ation record ed. Champ Infante MD [address] [facility] [address], [place], [address], 08/06/2024 08:35:04 Result Notes None recorded. 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 4405315 Active 2023 Rui Marcus MD [address], [address], [place], [address] , [employer] [facility] 4 15:43:05 Pain of right shoulder joint [id number] 552285 Active 2023 Rui Marcus MD [address], [address], [place], [address] , [employer] [facility] 4 15:39:47 Heart murmur 55153230 Active 2024 Rui Marcus MD [address], [address], [place], [address] , [place] - [facility] 5 16:14:21 Tobacco user 418787053 Completed 202008/01/2022 Not Available [facility] 3 04:51:12 Backache 846071380 Active Not Available [facility] 3 04:51:12 Cerebrova scular accident 355274181 Active 2019 Not Available [facility] 3 04:51:12 Tobacco smoking consumpti on unknown 397131572 Completed Not Available [facility] 3 04:51:12 Adult health examinati on Active 2021 Not Available [facility] 3 04:51:12 History of cerebrova scular accident 523949853 Active 2020 Not Available [facility] 3 04:51:12 Hypertrig lyceridem ia 745446260 Active Not Available [facility] 3 04:51:12 Enthesopa thy of hip region 70928150 Active Not Available [facility] 3 04:51:12 Type 2 diabetes mellitus without complicat ion 728950819 Completed Not Available [facility] 3 04:51:13 Obesity 117563135 Active Not Available [facility] 3 04:51:13 History of atrial flutter 674461154 Active 2017 Not Available [facility] 3 04:51:13 History of malignant neoplasm of prostate 255842436 Active 2020 Not Available [facility] 3 04:51:13 Type 2 diabetes mellitus 43122717 Completed Not Available [facility] 3 04:51:13 Screening for malignant neoplasm of prostate Completed 202108/01/2022 Not Available [facility] 3 04:51:13 Secondary erectile dysfuncti on 776853526 Completed Not Available [facility] 3 04:51:13 Pain of hip region 05625652 Completed Not Available [facility] 3 04:51:14 Atrial flutter 1788761 Active Not Available [facility] 3 04:51:14 Hyperlipi demia 55114906 Active Not Available [facility] 3 04:51:14 Essential hypertens ion 69222278 Active Not Available [facility] 3 04:51:14 Diabetes mellitus 08755557 Active Not Available [facility] 3 04:51:14 Smoker 89773431 Active 2021 Not Available [facility] 3 04:51:14 Erectile dysfuncti on 828583791 Active 2020 Not Available [facility] 3 04:51:14 Problem Notes None recorded. Procedures Surgical History Date Name Laterality Status Provider Name and Address Organization Details Recorded Time 04/29/20 Medicare Wellness CPT Code, subsequent completed Negra Rod RN [place] [facility] 04/29/2024 14:56:49 Cardiovascular Procedure completed Not Available [facility] 12/06/2022 04:42:01 Imaging Results None recorded. Procedure Notes None recorded. Medical Equipment None Reported. Allergies No known drug allergies Medications Name Sig Start Date Stop Date Status Note LastModified by Organization Details LastModified Time cyclobenz aprine 10 mg tablet Take 1 tablet 3 times a day by oral route. active GENERIC FOR FLEXERIL Not Available Not Available Not Available latanopro st 0.005 % eye drops INSTILL 1 DROP INTO BOTH EYES EVERY EVENING 12/24 completed Not Available Not Available Not Available metformin 500 mg tablet TAKE 2 TABLETS BY MOUTH TWICE DAILY active Not Available Not Available No t Available Novolin 70/30 U-100 Insulin 100 unit/mL subcutane ous suspensio n 45u in AM, 42u inPM 10/03 completed Not Available Not Available Not Available glyburide 5 mg tablet Take 1 tablet twice a day by oral route. 10/11 completed Not Available Not Available Not Available metoprolo l succinate ER 50 mg tablet,ex tended release 24 hr TAKE 1 TABLET BY MOUTH EVERY DAY 2024 active Not Available Not Available Not Avai lable hydrocodo ne 5 mg-acetam inophen 325 mg tablet TAKE 1-2 TABLETS BY MOUTH EVERY SIX HOURS NEEDED FOR PAIN 12/24 completed Not Available Not Available Not Available Edex 10 mcg intracave rnosal kit Take 1 kit by intracav ernosal route. active Not Available Not Available No t Available niacin ER 500 mg tablet,ex tended release 24 hr TAKE 1 TABLET BY MOUTH DAILY 12/24 completed Not Available Not Available Not Available pioglitaz one 45 mg tablet 06/23 completed Not Available Not Available Not Available clopidogr el 75 mg tablet TAKE 1 TABLET BY MOUTH DAILY active Not Available Not Available No t Available peg-elect rolyte solution 420 gram oral solution 06/02 completed Not Available Not Available Not Available aspirin 81 mg tablet,de layed release Take 1 tablet every day by oral route. 07/04 completed Not Available Not Available Not Available tramadol 50 mg tablet Take 1 TABLET EVERY 6 HOURS by oral route prn active Not Available Not Available No t Available sildenafi l 100 mg tablet TAKE 1 TABLET BY MOUTH an hour before sexual activity NEEDED 2023 active Not Available Not Available Not Avai lable glimepiri de 1 mg tablet Take 1 tablet every day by oral route. active Not Available Not Available No t Available amoxicill in 875 mg tablet TAKE 1 TABLET BY MOUTH TWICE DAILY UNTIL GONE active Not Available Not Available No t Available glyburide 5 mg-metfor min 500 mg tablet TAKE 2 TABLETS BY MOUTH TWICE A DAY active Not Available Not Available No t Available Humalog U-100 Insulin 100 unit/mL subcutane ous solution inject 20u in the AM and 20u in the PM active Not Available Not Available No t Available OneTouch Ultra Test strips USE TO TEST TWICE A DAY 12/24 completed Not Available Not Available Not Available Humulin N NPH U-100 Insulin (isophane susp) 100 unit/mL subcutane ous INJECT 45 UNITS IN THE MORNING AND INJECT 50 UNITS IN THE EVENING 10/22 completed Not Available Not Available Not Available diclofena c sodium 75 mg tablet,de layed release active Not Available Not Available Not Available irbesarta n 150 mg tablet TAKE 2 TABLETS BY MOUTH DAILY 02/01 completed Not Available Not Available Not Available Insulin Syringe Ultrafine 0.5 mL 29 gauge x 1/2 QID 06/18 completed Not Available Not Available Not Available irbesarta n 300 mg tablet TAKE 1 TABLET BY MOUTH DAILY active Not Available Not Available No t Available Microlet Lancet Take 1 each 2 times a day by miscell. route. 02/11 completed Not Available Not Available Not Available Humalog U-100 Insulin 100 unit/mL subcutane ous cartridge Inject 15 units every day by subcutan eous route. 2015 active 5 units at lunchtim e 20 units hs Not Available Not Available Not Available rosuvasta tin 40 mg tablet TAKE 1 TABLET BY MOUTH DAILY active Not Available Not Available No t Available tadalafil 20 mg tablet TAKE 1 TABLET BY MOUTH EVERY DAY NEEDED 12/24 completed Not Available Not Available Not Available Cialis 10 mg tablet Take 1 tablet as needed by oral route as needed 4 erectile dysfunct ion. active Not Available Not Available No t Available Lupron Depot 22.5 mg (3 month) intramusc ular syringe kit Inject 22.5 mg every 3 months by intramus cular route. active Not Available Not Available No t Available sildenafi l (pulmonar y hypertens ion) 20 mg tablet TAKE 3 TO 5 TABLETS EVERY 2 TO 4 HOURS NEEDED 02/01 completed Not Available Not Available Not Available OneTouch Ultra2 Meter kit active Not Available Not Available No t Available BD Insulin Syringe Ult-Fine II 0.5 mL 31 gauge x 5/16 active Not Available Not Available Not Available BD Ultra-Fin e Short Pen Needle 31 gauge x 5/16 USE FOR INJECTIN G INSULIN active Not Available Not Available No t Available Januvia 100 mg tablet 06/23 completed Not Available Not Available Not Available peg 3350 240 gram-elec trolytes 22.72 gram-6.72 g-5.84 g powdr for soln active Not Available Not Available Not Available cholecalc iferol (vitamin D3) 50 mcg (2,000 unit) capsule Take by oral route. 2021 active Not Available Not Available Not Avai lable Lumigan 0.01 % eye drops active Not Available Not Available No t Available BD Insulin Syringe Ultra-Fin e 1 mL 31 gauge x active Not Available Not Available Not Available TRUEplus Insulin 0.5 mL 31 gauge x 5/16 syringe active Not Available Not Available Not Available TRUEplus Insulin 1 mL 31 gauge x 5/16 syringe 12/24 completed Not Available Not Available Not Available TRUEplus Lancets 33 gauge USE TWICE DAILY active Not Available Not Available No t Available Jardiance 25 mg tablet TAKE 1 TABLET BY MOUTH DAILY active Not Available Not Available No t Available Trulicity 1.5 mg/0.5 mL subcutane ous pen injector INJECT 1.5 MG (0.5 ML) SUBCUTAN EOUSLY WEEKLY 12 WEEKS 07/04 completed Not Available Not Available Not Available Tresiba FlexTouch U-100 insulin 100 unit/mL (3 mL) subcutane ous pen INJECT 40 UNITS EVERY MORNING 08/02 completed Not Available Not Available Not Available TRUEplus Pen Needle 31 gauge x 3/16 USE WITH INSULIN INJECTIO N ONCE DAILY 12/24 completed Not Available Not Available Not Available Ozempic on Y active Not Available Not Available No t Available Trulicity 3 mg/0.5 mL subcutane ous pen injector INJECT 0.5ML (3MG/1 SYRINGE) SUBCUTAN EOUSLY ONCE WEEKLY 08/02 completed Not Available Not Available Not Available Trulicity 4.5 mg/0.5 mL subcutane ous pen injector INJECT 4.5 MG (0.5 ML) SUBCUTAN EOUSLY WEEKLY 12/24 completed Not Available Not Available Not Available Vitals Date Recorded Body height Body mass index (BMI) Body weight Heart rate Oxygen saturation Oxygen saturation in Arterial blood by Pulse oximetry Body temperature Systolic blood pressure Diastolic blood pressure Provider Name and Address Organization Details Last Updated DateTime 4 177.8 cm 21.7 kg/m2 42584.4 5 g 81 /min 98 % 98 % 97.4 [degF] 110 mm[Hg] 60 mm[Hg] FARIDA [facility] 4 14:24:42 Date Recorded Body height Body mass index (BMI) Body weight Body temperature Heart rate Oxygen saturation Oxygen saturation in Arterial blood by Pulse oximetry Systolic blood pressure Diastolic blood pressure Provider Name and Address Organization Details Last Updated DateTime 5 177.8 cm 22 kg/m2 81131.6 3 g 97.6 [degF] 76 /min 98 % 98 % 116 mm[Hg] 58 mm[Hg] Elana olvera [facility] 5 15:58:16 Date Recorded Body height Body mass index (BMI) Body weight Body temperature Heart rate Oxygen saturation Oxygen saturation in Arterial blood by Pulse oximetry Systolic blood pressure Diastolic blood pressure Provider Name and Address Organization Details Last Updated DateTime 4 177.8 cm 20.8 kg/m2 82243.8 9 g 97.6 [degF] 74 /min 95 % 95 % 124 mm[Hg] 70 mm[Hg] Elana olvera [facility] [employer] [facility] 4 14:40:09 Date Recorded Body height Body mass index (BMI) Body weight Body temperature Heart rate Oxygen saturation Oxygen saturation in Arterial blood by Pulse oximetry Systolic blood pressure Diastolic blood pressure Provider Name and Address Organization Details Last Updated DateTime 4 177.8 cm 20.9 kg/m2 65165.4 9 g 97.6 [degF] 75 /min 99 % 99 % 120 mm[Hg] 60 mm[Hg] Elana olvera [facility] [employer] [facility] 4 15:16:44 Date Recorded Body height Body mass index (BMI) Body weight Body temperature Heart rate Oxygen saturation Oxygen saturation in Arterial blood by Pulse oximetry Systolic blood pressure Diastolic blood pressure Provider Name and Address Organization Details Last Updated DateTime 3 177.8 cm 22 kg/m2 08055.6 3 g 97.7 [degF] 79 /min 98 % 98 % 120 mm[Hg] 64 mm[Hg] Elana olvera [facility] [employer] [facility] 3 14:24:09 Social History Question Answer Notes LastModified by Organization Details LastModified Time Tobacco Smoking Status Current Every Day Smoker Not Available [facility] 12/06/2022 04:33:43 Do You Have An Advance Directive? No Paperwork Given On 04/29/2024 [email or web address] Information not available 04/29/2024 Are You Blind Or Do You Have Difficulty Seeing? Yes Can't See Out Of Left Eye, Glaucoma [email or web address] Information not available 04/29/2024 Is Blood Transfusion Acceptable In An Emergency? Yes [email or web address] Information not available 04/29/2024 What Is Your Level Of Caffeine Consumption? None [id number] Information not available 12/06/2022 How Much Tobacco Do You Chew? None [id number] [id number] Information not available 12/06/2022 In The 14 Days Before Symptom Onset, Have You Had Close Contact With A Laboratory-conf irmed COVID-19 While That Case Was Ill? No Not Applicable [email or web address] Information not available 04/29/2024 In The 14 Days Before Symptom Onset, Have You Had Close Contact With A Person Who Is Under Investigation For COVID-19 While That Person Was Ill? No Not Applicable [email or web address] Information not available 04/29/2024 Are You Deaf Or Do You Have Serious Difficulty Hearing? No [id number] Information not available 12/06/2022 What Type Of Diet Are You Following? REGULAR [email or web address] Information not available 04/29/2024 Which Illicit Or Recreational Drugs Have You Used? None [id number] Information not available 12/06/2022 What Is The Highest Grade Or Level Of School You Have Completed Or The Highest Degree You Have Received? KC52871-4 [email or web address] Information not available 04/29/2024 How Many Days Of Moderate To Strenuous Exercise, Like A Brisk Walk, Did You Do In The Last 7 Days? 0 [email or web address] Information not available 04/29/2024 Have There Been Any Changes To Your Family Or Social Situation? No [id number] Information not available 12/06/2022 What Is The Fluoride Status Of Your Home? Fluoridated [email or web address].[id number] [id number] Information not available 12/06/2022 Are There Any Guns Present In Your Home? Yes [email or web address].[id number] [id number] Information not available 12/06/2022 Do You Use Insect Repellent Routinely? No [email or web address] Information not available 04/29/2024 Where Do You Live? SingleLevelHouse [id number] [id number] Information not available 12/06/2022 Presence Of Domestic Violence No [email or web address] Information not available 04/29/2024 Guns Present In The Home? Yes [email or web address] Information not available 04/29/2024 Are You Able To Care For Yourself? Yes [email or web address] Information not available 04/29/2024 Are You Blind Or Do Yo Have Difficulty Seeing? Yes [email or web address] Information not available 04/29/2024 Are You Deaf Or Do You Have Serious Difficulty Hearing? No [email or web address] Information not available 04/29/2024 General Stress Level? Low [email or web address] Information not available 04/29/2024 Live Alone Of With Others? Alone [email or web address] Information not available 04/29/2024 Do You Have A Medical Power Of Apprentice Funeral Director? No [email or web address] Information not available 04/29/2024 What Was The Date Of Your Most Recent Tobacco Screening? 04/29/2024 [email or web address] Information not available 04/29/2024 How Many Children Do You Have? 1 [email or web address] Information not available 04/29/2024 What Is Your Current Pack Years? [email or web address] MIGRATION.0301 [id number] Information not available 12/06/2022 Do You Have Any Pets? Yes [email or web address] Information not available 04/29/2024 What Is Your Relationship Status? [email or web address] Information not available 04/29/2024 Do You Use Your Seat Belt Or Car Seat Routinely? Yes MIGRATION.0301 [id number] Information not available 12/06/2022 Do You Have Smoke And Carbon Monoxide Detectors In Your Home? Yes MIGRATION.0301 [id number] Information not available 12/06/2022 At What Age Did You Start Smoking Tobacco? 17 MIGRATION.0301 [id number] Information not available 12/06/2022 Are You Passively Exposed To Smoke? Yes [email or web address] Information not available 04/29/2024 Are There Any Smokers In Your House? Yes [email or web address] Information not available 04/29/2024 How Much Tobacco Do You Smoke? 1 PPD MIGRATION.0301 [id number] Information not available 12/06/2022 What Types Of Sporting Activities Do You Participate In? None [email or web address] Information not available 04/29/2024 Do You Use Sunscreen Routinely? No MIGRATION.0301 [id number] Information not available 12/06/2022 Has Tobacco Cessation Counseling Been Provided? No [email or web address] Information not available 04/29/2024 How Many Years Have You Smoked Tobacco? 55 MIGRATION.0301 [id number] Information not available 12/06/2022 Have You Recently Traveled Abroad? No [email or web address] Information not available 04/29/2024 Do You Have Difficulty Walking Or Climbing Stairs? No MIGRATION.0301 [id number] Information not available 12/06/2022 Do You Have Any Dietary Restrictions? No [email or web address] Information not available 04/29/2024 Sex: Male Functional Status Question Answer Note LastModified by Organizat ion Details LastModified Time Do you use any illicit or recreational drugs? No [email or web address] Information not available 04/29/2024 Do you or have you ever used any other forms of tobacco or nicotine? No [email or web address] Information not available 04/29/2024 What is your level of alcohol consumption? 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 No [email or web address] Information not available 04/29/2024 Do you have transportation difficulties? No MIGRATION.114984 [id number] Information not available 12/06/2022 Are you able to walk? YESWOREST MIGRATION.572564 3718 Information not available 12/06/2022 Do you have difficulty doing errands alone? No MIGRATION.091620 0959 Information not available 12/06/2022 Are you able to care for yourself? Yes MIGRATION.348154 0554 Information not available 12/06/2022 What is your occupation? RETIRED MIGRATION.821683 3714 Information not available 12/06/2022 Do you have difficulty dressing or bathing? No MIGRATION.455806 5341 Information not available 12/06/2022 What is your exercise level? None MIGRATION.526498 5996 Information not available 12/06/2022 Mental Status Question Answer Note LastModified by Organizat ion Details LastModified Time Do you feel stressed (tense, restless, nervous, or anxious, or unable to sleep at night)? [id number] MIGRATION.[id number] 26 Information not available 12/06/2022 Do you have difficulty concentrating, remembering or making decisions? No MIGRATION.[id number] 26 Information not available 12/06/2022 Family History Relationship Description Onset Age of this Age Resolved Age Notes LastModified by Organization Details LastModified Time Mother Malignant neoplastic disease pancre atic MIGRATION.369 [id number] Not available 12/06/2022 04:42:08 Mother Diabetes mellitus MIGRATION.538 [id number] Not available 12/06/2022 04:42:08 Mother Essential hypertension MIGRATION.489 [id number] Not available 12/06/2022 04:42:08 Sister Diabetes mellitus MIGRATION.498 [id number] Not available 12/06/2022 04:42:08 Sister Diabetes mellitus MIGRATION.585 [id number] Not available 12/06/2022 04:42:08 Sister Diabetes mellitus MIGRATION.358 [id number] Not available 12/06/2022 04:42:08 Sister Essential hypertension MIGRATION.013 [id number] Not available 12/06/2022 04:42:08 Brother Diabetes mellitus MIGRATION.861 [id number] Not available 12/06/2022 04:42:08 Medical History Condition Response DIABETES, TYPE Y CANCER: SPECIFY Y Immunizations Vaccine Type Date Status Note Provider Nam e and Address Organization Details Recorded Time COVID-19, mRNA, LNP-S, PF, 30 mcg/0.3 mL dose 1 completed Not Available [facility] 12/06/2022 05:03:05 COVID-19, mRNA, LNP-S, PF, 30 mcg/0.3 mL dose 1 completed Not Available [facility] 12/06/2022 05:03:06 Pneumococcal conjugate PCV 13 7 completed IGNACIO De [place], [place] [employer] [facility] 12/25/2023 14:19:11 pneumococcal polysaccharide PPV23 6 completed Not Available [facility] 12/06/2022 05:03:06 Past Encounters Encounter ID Performer Location Encounter Start Date Encounter Closed Date Diagnosis/Indication Diagnosis SNOMED-CT Code Diagnosis ICD10 Code Diagnosis Note [id number] Rui Marcus MD [facility] Internal Med [address] [address] 02/14/2021 00:00:00 02/14/2021 14:39:01 [id number] MD [facility] [address] [address] 07/04/2021 00:00:00 07/04/2021 14:24:20 [id number] MD [facility] [address] [address] 11/15/2021 00:00:00 11/15/2021 17:48:42 [id number] MD [facility] [address] [address] 03/16/2022 00:00:00 03/16/2022 14:54:42 [id number] Rui Marcus MD [facility] Internal Med [address] [facility] [place] [address] 08/02/2022 00:00:00 08/02/2022 14:27:11 [id number] Rui Marcus MD [facility] Internal Med [address] [place] [address] 12/04/2022 00:00:00 12/04/2022 15:16:43 [id number] Rui Marcus MD [facility] Internal Med [facility] [address] [facility] [place] [address] 03/28/2023 14:38:12 03/28/2023 15:31:37 Essential hypertension 19025043 I10 under control with meds Diabetes mellitus 448675 09 E11.9 better History of malignant neoplasm of prostate 367512222 Z85.46 s/p radiation, Hyperlipidemia 65199222 E78.5 under control Hypertriglyceridemia 302 970454 E78.1 stable History of atrial flutter 559662873 Z86.79 no recurrence History of cerebrovascular accident 583337529 Z86.73 on clopidogre l Erectile dysfunction 860 856923 F52.21 meds help Smoker 81558211 F17.200 advised to quit Adult heal th examination 697590297 Z00.00 Colonoscop y- 01/24 , next in 4PSA- 12/28Pneum ovax- 06/26/2016 Prevnar - 06/18/2017 COVID Vacc- 11/29/20 & 12/20/20 [id number] Rui Marcus MD [facility] Internal Med [facility] [address] [facility] [place] [address] 08/02/2023 14:08:08 08/02/2023 14:44:40 Essential hypertension 45453676 I10 under control with meds Diabetes mellitus 517933 09 E11.9 getting better History of malignant neoplasm of prostate 591252233 Z85.46 s/p radiation, Hyperlipidemia 73486519 E78.5 under control Hypertriglyceridemia 302 502562 E78.1 stable History of atrial flutter 805256946 Z86.79 no recurrence History of cerebrovascular accident 236984042 Z86.73 on clopidogre l Erectile dysfunction 860 062230 F52.21 meds help Smoker 13948486 F17.200 advised to quit, upto date on LDCT Adult [facility] th examination 659341243 Z00.00 Colonoscop y- 01/24 , next in 12/28Pneum ovax- 06/26/2016 Prevnar 06/18/2017 COVID Vacc- 11/29/20 & 12/20/20FLU - Declined Depression screening 171 934191 Z13.31 [id number] Rui Marcus MD [facility] Internal Med [address] [place] [address] 12/25/2023 14:13:56 12/25/2023 14:52:29 Essential hypertension 94011759 I10 under control with meds Diabetes mellitus 264273 09 E11.9 getting better History of malignant neoplasm of prostate 622207793 Z85.46 s/p radiation, Hyperlipidemia 46250822 E78.5 under control Hypertriglyceridemia 302 874613 E78.1 stable History of atrial flutter 132336259 Z86.79 no recurrence History of cerebrovascular accident 127993949 Z86.73 on clopidogre l Erectile dysfunction 860 637939 F52.21 try sildenafil Smoker 42792036 F17.200 advised to quit, Adult [facility] th examination 204424440 Z00.00 Colonoscop y- 01/24 , next in 12/28Pneum ovax- 06/26/2016 Prevnar - 06/18/2017 COVID Vacc- 11/29/20 & 12/20/20FLU - Declined [id number] Rui Marcus MD [facility] [place] Internal Med [address] [facility] [place] [address] 04/29/2024 14:13:25 04/29/2024 15:58:22 Essential hypertension 20471088 I10 under control with meds Diabetes mellitus 578524 09 E11.9 under control History of malignant neoplasm of prostate 700507998 Z85.46 s/p radiation, nl psa Hyperlipidemia 71700461 E78.5 under control Hypertriglyceridemia 302 663302 E78.1 stable History of atrial flutter 162814116 Z86.79 no recurrence History of cerebrovascular accident 479720008 Z86.73 on clopidogre l Erectile dysfunction 860 716731 F52.21 Smoker 91630401 F17.200 advised to quit, Adult [facility] examination 409117709 Z00.00 Colonoscop y- 01/24 , next in 2023 - DUEPSA- 4Pne umovax- 06/26/2016 Prevnar - 06/18/2017 COVID Vacc- 11/29/20 & 12/20/20FLU - Declined Screening for disorder 359367527 Z13.9 Screening for malignant neoplasm of colon 097309235 Z12.11 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 [address] 07/30/2024 14:45:48 07/30/2024 15:42:44 Essential hypertension 63680771 I10 under control with meds Diabetes mellitus 553401 09 E11.9 under control History of malignant neoplasm of prostate 987283156 Z85.46 s/p radiation, nl psa Hyperlipidemia 56459215 E78.5 under control Hypertriglyceridemia 302 943574 E78.1 stable History of atrial flutter 900243232 Z86.79 no recurrence History of cerebrovascular accident 896725627 Z86.73 on clopidogre l Erectile dysfunction 860 539504 F52.21 MEDS DID NOT HELP Smoker 18419114 F17.200 advised to quit, Adult [facility] examination 577266347 Z00.00 Colonoscop y- 2023, NO REPORTPSA- 4Pne umovax- 06/26/2016 Prevnar - 06/18/2017 COVID Vacc- 2 & 12/20/20FLU - Declined Retinopath y due to diabetes mellitus 6133047 E11.319 [facility] 4876996199 6369704 M25.511 exercises discussed for tendonitis [id number] Rui Marcus MD [facility] Internal Med [address] [facility] [place] [address] 02/03/2025 15:49:52 02/03/2025 17:02:59 Essential hypertension 60937136 I10 under control with meds Diabetes mellitus 718918 09 E11.9 getting better History of malignant neoplasm of prostate 497730875 Z85.46 s/p radiation, nl PSA Hyperlipidemia 34554574 E78.5 under control Hypertriglyceridemia 302 206279 E78.1 stable History of atrial flutter 187092867 Z86.79 no recurrence History of cerebrovascular accident 738764187 Z86.73 on clopidogre l Smoker 73918201 F17.200 advised to quit, Adult heal th examination 463228873 Z00.00 Colonoscop y- 2023, NO REPORTPSA- 4Pne umovax- 06/26/2016 Prevnar 13- 06/18/2017 COVID Vacc- 11/29/20 & 12/20/20FLU - Declined Retinopath y due to diabetes mellitus 3855137 E11.319 seeing Heart murmur 40494170 R0 1.1 Health Concerns Section Related Observation LastModified by Organization Detai ls LastModified Time None Recorded Concern Status LastModified by Organization Details LastModified Time None Recorded Advance Directives Directive N: paperwork given on 024 Payers Encounter Date Sequence Insurance Name Policy Number Policy Patel Covered Member ID Patel Member ID Guarantor Name 08/02/2023 1 [facility] (MEDICARE REPLACEMENT/A DVANTAGE - HMO) [id number] Pita Santiago [id number] Pita Santiago 12/25/2023 1 [facility] (MEDICARE REPLACEMENT/A DVANTAGE - HMO) [id number] Pita Santiago [id number] Pita Santiago 04/29/2024 1 [facility] (MEDICARE REPLACEMENT/A DVANTAGE - HMO) [id number] Pita Santiago [id number] Pita Santiago 07/30/2024 1 [facility] (MEDICARE REPLACEMENT/A DVANTAGE - HMO) [id number] Pita Santiago [id number] Pita Santiago 02/03/2025 1 [facility] (MEDICARE REPLACEMENT/A DVANTAGE - HMO) [id number] Pita Santiago [id number] Pita Santiago Notes Date Note Type Note Provider Name and Address Organization Details Recorded Time 08/02/2023 text/html Here for routine f/u, compliant to meds, no side effectsDM- Accu checks are under 100- 200, pt is seeing [facility] - All DM labs done there, A1c 10.2 in 10/30 at [facility] per pt , 7.5 in 03/30No hypoglycemia, No neuropathyDM eye exam- 06/30GETS ALL THE LABS DONE AT [facility]- glimepride 1mg, Metformin 500 mg bid,Jardiance 25 mg qd , was on tresiba in the past, ozempic 1 mg wklyHTN- on meds, under controlMeds- Irbesartan 300 mg qd, metoprolol ER 50 mg qd,Hyperlipidemia- better with meds, Trig are high 173, labs 10/30 at [facility], were reviewedMeds- Niacin ER 500 mg qd, rosuvastatin 40 mg qdAtrial flutter in the past, no recurrence , no symptomssmoker 1/2-1 ppd for 50 yrs, has been advised to quit, LDCT 12/28- no noduleProstate cancer diagnosed 2007, s/p radiation, not seeing urology , psa nl 11/30CVA- no more weaknessMeds- clopidogrel 75 mg qdED- on tadalafil 20 mg Rui Marcus MD [address] 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 (Consult in chart) DM- Accu checks are under 140, pt is seeing [facility]-A1c was 10.2 in the past, now much betterNo hypoglycemia, No neuropathyDM eye exam- 06/30GETS ALL THE LABS DONE AT [facility]- glimepride 1mg, Metformin 500 mg bid,Jardiance 25 mg qd , was on tresiba in the past, ozempic 1 mg wklyHTN- on meds, under controlMeds- Irbesartan 300 mg qd, metoprolol ER 50 mg qd,Hyperlipidemia- better with meds, Trig are highMeds- rosuvastatin 40 mg qdAtrial flutter in the past, no recurrence , no symptomsSmoker 1/2-1 ppd for 50 yrs, has been advised to quit, LDCT 12/28- no noduleProstate cancer diagnosed 2007, s/p radiation, not seeing urology , psa nl 11/30CVA- no more weaknessMeds- clopidogrel 75 mg qdED- was on tadalafil 20 mg, does not help , not taking Rui Marcus MD [address], [place], [address], [employer] 12/25/2023 14:49:19 04/29/2024 text/html Here for routine f/u, compliant to meds, no side effects Pt seen [facility], 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 (Consult in chart) DM- Accu checks are under 83-290,pt is seeing [facility]x was 10.2 in the past, now much better 6.8 ( 03/31/24)No hypoglycemia, No neuropathyDM eye exam- due in 05/31GETS ALL THE LABS DONE AT [facility] , reviewedMeds- Glimepride 1mg, Metformin 500 mg bid,Jardiance 25 mg qd , was on tresiba in the past, Ozempic 1 mg wklyHTN- on meds, under controlMeds- Irbesartan 300 mg qd, metoprolol ER 50 mg qd,Hyperlipidemia- better with meds, Trig are highMeds- Rosuvastatin 40 mg qdAtrial flutter in the past, no recurrence , no symptomsSmoker 1/2-1 ppd for 50 yrs, has been advised to quit, LDCT 12/28- no noduleProstate cancer diagnosed 2007, s/p radiation, not seeing urology , psa nl 03/31CVA- no more weaknessMeds- clopidogrel 75 mg qd Kidney disease- seeing nephrology, GFR has improved to nlED- was on tadalafil 20 mg, does not help , Rui Marcus MD [address], [place], [address], [employer] 04/30/2024 08:34:48 07/30/2024 text/html Here for routine f/u, compliant to meds, no side effects DM- Accu checks are under 87-150pt is seeing CoqbespywsndpuaB3h was 10.2 in the past, now much better 6.8 ( 03/31/24)No hypoglycemia,No neuropathyDM eye exam- 2023GETS ALL THE LABS DONE AT [facility] , Dr Garzon- Glimepride 1mg, Metformin 500 mg bid,Jardiance 25 mg qd , was on tresiba in the past, Ozempic 1 mg wklyHTN- on meds, under controlMeds- Irbesartan 300 mg qd, metoprolol ER 50 mg qd,Hyperlipidemia- better with meds, Trig are high, watching dietMeds- Rosuvastatin 40 mg qdAtrial flutter in the past, no recurrence , no symptomsSmoker 1/2-1 ppd for 50 yrs, has been advised to quit, LDCT 04/30 - no noduleProstate cancer diagnosed 2007, s/p radiation, not seeing urology , psa nl 03/31CVA- no more weaknessMeds- clopidogrel 75 mg qd Kidney disease- seeing nephrology, GFR has improved to nlED- was on tadalafil 20 mg, did not help , Rui Marcus MD [address] [facility], [facility] [address], [place], [address], [facility] [employer] 07/30/2024 15:41:25 02/03/2025 text/html Here for routine f/u, compliant to meds, no side effectsPT IS NOT FASTING ( [facility] ) DM- Accu checks are 85-300Pt is seeing HpbafctixmungsnO0m was 10.2 in the past, got better 6.8 ( 03/31/24)No hypoglycemia, No neuropathyDM eye exam- 11/2024- in chartGETS ALL THE LABS DONE AT [facility] , Dr Garzon- Glimepride 1mg, Metformin 500 mg bid,Jardiance 25 mg qd , was on tresiba in the past, Ozempic 1 mg wklyHTN- on meds, under controlMeds- Irbesartan 300 mg qd, Metoprolol ER 50 mg qd,Hyperlipidemia- better with meds, Trig are high, watching dietHas gained 7 lbsMeds- Rosuvastatin 40 mg qdAtrial flutter in the past, no recurrence , no symptomsSmoker 1/2-1 ppd for 50 yrs, has been advised to quit, LDCT 04/30 - no noduleProstate cancer diagnosed 2007, s/p radiation, not seeing urology , psa nl 03/31CVA- no more weaknessMeds- Clopidogrel 75 mg qd Kidney disease- seeing nephrology, GFR has improved to nlED- was on tadalafil 20 mg, did not help , Rui Marcus MD [address] [facility], [facility] [address], [place], [address], [place] [facility] 02/03/2025 16:15:04
--- OUTSIDE RECORDS SUMMARY | 2025-03-16 15:32 | XMS_ITS | Clinical Summary ---
Author Organization [facility] Ruby duong Address [address] [place] [phone] Phone Care Team Providers Care Strand Forming Machine Operator Name Role Phone Joey Arndt MD Primary Care Provider [phone] Allergies No known active allergies Medications clopidogrel (PLAVIX) 75 MG tablet Take 75 mg by mouth 1 (one) time each day 09/06/20 22 Active Cholecalcifero l 50 MCG (2000 UT) capsule cholecalciferol (vitamin D3) 50 mcg (2,000 unit) capsule Take by oral route. Activ e cyclobenzaprin e (FLEXERIL) 10 MG tablet cyclobenzaprine 10 mg tablet Active diclofenac (VOLTAREN) 75 MG EC tablet diclofenac sodium 75 mg tablet,delayed release Active Trulicity 4.5 MG/0.5ML solution pen-injector INJECT 4.5 MG (0.5 ML) SUBCUTANEOUSLY WEEKLY FOR 3 MONTHS 08/16/20 22 Active glyBURIDE-metF ORMIN (GLUCOVANCE) 5-500 MG per tablet glyburide 5 mg-metformin 500 mg tablet TAKE 2 TABLETS BY MOUTH TWICE A DAY Active Insulin Lispro (HumaLOG) 100 UNIT/ML solution Humalog U-100 Insulin 100 unit/mL subcutaneous solution Active irbesartan (AVAPRO) 300 MG tablet Take 300 mg by mouth 1 (one) time each day 08/09/20 22 Active latanoprost (XALATAN) 0.005 % ophthalmic solution latanoprost 0.005 % eye drops Active leuprolide (Lupron Depot, 3-Month,) 22.5 MG injection Lupron Depot 22.5 mg (3 month) intramuscular syringe kit Inject 22.5 mg every 3 months by intramuscular route. Active metoprolol succinate XL (TOPROL-XL) 50 MG 24 hr tablet Take 50 mg by mouth 1 (one) time each day 09/14/20 Active niacin (NIASPAN) 500 MG CR tablet niacin ER 500 mg tablet,extended release 24 hr Active rosuvastatin (CRESTOR) 40 MG tablet Take 40 mg by mouth 1 (one) time each day 09/08/20 Active tadalafil (CIALIS) 20 MG tablet tadalafil 20 mg tablet TAKE 1 TABLET BY MOUTH EVERY DAY NEEDED Active traMADol (ULTRAM) 50 MG tablet tramadol 50 mg tablet Active Active Problems Problem Noted Date Diagnosed [...] mellitus 03/15/2009 Tobacco dependence syndrome 03/15/2009 Immunizations Immunization Administration Dates Next Due Pneumococcal Conjugate 13-Valent [...] at Not on file Legal Sex Male 10:29 AM MDT Gender Identity Not on file Sexual Orientation Not on file Last Filed Vital Signs Vital Sign Reading Time Taken Comments Blood Pressure 136/80 09/18/2022 11:44 AM FEEDER OPERATOR Pulse - - Temperature 36.2 C (97.1 F) 09/18/2022 11:44 AM FEEDER OPERATOR Respiratory Rate 18 09/18/2022 11:44 AM FEEDER OPERATOR Oxygen Saturation - - Inhaled Oxygen Concentration - - Weight 75.8 kg (167 lb) 09/18/2022 11:44 AM FEEDER OPERATOR Height 177.8 cm (5' 10) 09/18/2022 11:44 AM FEEDER OPERATOR Body Mass Index 23.96 09/18/2022 11:44 AM FEEDER OPERATOR Plan of Treatment Health Maintenance Due Date Last Done Comments COVID-19 Vaccine ( season) 2024, 11/29/2020 Influenza Vaccine (Season Ended) 2025 Pneumococcal PPSV23/PCV13 65 + Years / Low and Medium Risk Completed 06/18/2017, 06/26/2016 Insurance MEDICARE Care Teams Strand Forming Machine Operator Relationship Specialty Start Date End Date Joey Arndt MD [address] [phone] PCP - General Internal Medicine 09/14/22
--- OUTSIDE RECORDS SUMMARY | 2025-03-16 15:32 | XMS_ITS | Referral Summary ---
Author Organization [facility] Address [address] [place] [phone] Care Team Providers Care Booker Name Role Phone Rui Arndt MD Primary Care Provider Encounters Date Type Department Care Team Description 01/23/2025 Orders Only [facility] Ophthalmology [address] [place] [address] [phone] Dora Mitchell MD Neovascular glaucoma of left eye, severe stage (Primary Dx) 01/12/2025 2:10 PM CDT Imaging Exam [facility] Ophthalmology [address] [place] [address] Outpatient Health [address] [place] [address] [phone] Neovascular glaucoma of left eye, severe stage 01/12/2025 2:20 PM CDT Imaging Exam [facility] [address] [place] [address] [phone] Neovascular glaucoma of left eye, severe stage (Primary Dx) 01/12/2025 2:30 PM CDT Office Visit [facility] [address] [place] [address] [phone] Dora Mitchell MD Neovascular glaucoma of left eye, severe stage (Primary Dx) from Last 3 Months Allergies No known active allergies Medications clopidogreL [...] concerns Assessment & Plan (09/12/2024 4:34 PM PRINTER HELPER): POM#4 s/p dCPC OS - IOP numerically [...] check at [facility] Mitchell at [facility] thereafter Assessment & Plan (06/13/2024 10:11 AM [...] week Assessment & Plan (12/07/2023 11:05 AM PRINTER HELPER): POW1 status post (s/p) clinic diode left [...] check Assessment & Plan (11/30/2023 12:27 PM PRINTER HELPER): Here for dCPC OS Assessment & Plan (11/23/2023 4:04 PM PRINTER HELPER): NVG OS H/o BRVO OS S/p SNEHAL [...] on file Legal Sex Male 8:16 AM PRINTER HELPER Gender Identity Not on file Sexual Orientation Not on file Plan of Treatment Not on file Procedures Procedure Name Priority Date/Time Associated Diagnosis [...] Eye Reliability was good. Notes S thinning us Dora Mitchell MD OPH TOMOGRAPHY Final Result * [place]ero Visual Field - OD - Right Eye (01/12/2025 2:42 PM CDT) Pattern Deviation OD 2.72 CONTINUUM Mean Deviation OD -3.80 CONTINUUM Anatomical Region Laterality Modality Head Other Narrative 01/12/2025 3:06 PM CDT Fixation was good. Cooperation was good. Reliability was good. Findings include inferior arcuate defect. Mean Deviation was -3.80. Pattern Deviation was 2.72. us Dora Mitchell MD OPH VISUAL FIELD Final Resu lt from Last 3 Months Insurance [facility] MEDICARE ADVANTAGE Care Teams Booker Relationship Specialty Start Date End Date Rui Arndt MD [address] [place] [id number] PCP - General Internal Medicine 11/22/23
== END 2025-03-16 14:17 | disposition home or self-care (01) ==
PROVIDERS: PCP Internal Medicine; Visit Provider Internal Medicine
DX: R93.1 Abnormal findings on diagnostic imaging of heart and coronary circulation (principal); R01.1 Cardiac murmur, unspecified
CPT/HCPCS: 93306

== ENCOUNTER 2025-05-08 12:42 | Outpatient (CLI) | payer MEDICARE, SELFPAY ==
--- OUTSIDE RECORDS SUMMARY | 2025-05-08 12:46 | XMS_ITS | Clinical Summary ---
Author Organization [facility] Address [address] [place] [address] Care Team Providers Care Straight Truck Driver Name Role Phone Rui Arndt MD Primary Care Provider [phone] Allergies No known active allergies Medications insulin [...] Problem Noted Date Diagnosed Date Thalamic stroke ([facility]) 04/05/2020 Weakness 04/03/2020 Immunizations Immunization Administration Dates Next Due PFIZER COVID-19 (ORIGINAL [...] with Friends and Family Never 04/03/2020 Attends Evangelical Services Never 04/03 Active Member of Clubs or Organizations No 04/03/2020 Attends Club or Organization Meetings Not asked 04/03/2020 Marital Status 04/03/2020 Overall Financial Resource Strain (CARDIA) Answe r Date Recorded Difficulty of Paying Living Expenses Not hard at all 04/03/2020 [facility] [place] of Occupat ional Health - Occupational Stress [...] Comments Blood Pressure 120/70 10/14/2023 10:36 AM BROOMCORN SORTER Pulse 82 10/14/2023 10:36 AM BROOMCORN SORTER Temperature 36.7 C (98.1 F) 10/14/2023 10:36 AM BROOMCORN SORTER Respiratory Rate 18 10/14/2023 10:36 AM BROOMCORN SORTER Oxygen Saturation 100% 10/14/2023 10:36 AM BROOMCORN SORTER Inhaled Oxygen Concentration - - Weight 72.6 kg (160 lb) 10/14/2023 10:36 AM BROOMCORN SORTER Height 180.3 cm (5' 11) 10/14/2023 10:36 AM BROOMCORN SORTER Body Mass Index 22.32 10/14/2023 10:36 AM BROOMCORN SORTER Plan of Treatment Health Maintenance Due Date [...] - 2023-2 5 season) 2024 12/20/2020, 11/29/2020 Pneumococcal Vaccine: 50+ Years Completed 06/18/2017, 06/26/2016 Meningococcal B Vaccine Aged Out No l onger eligible based on patient's age to complete this topic Meningococcal Vaccine Aged Out No emeli alcira eligible based on patient's age to complete this topic RSV Immunizations Under 20 Months Aged Out No longer eligible b ased on patient's age to complete this topic Insurance [facility] Advance Directives * Full Code (Latest Code Status on File) Date Activated Date Inactivated Comments 04/03/2020 4:59 PM 04/05/2020 4:13 PM Care Teams Straight Truck Driver Relationship Specialty Start Date End Date Rui Arndt MD PCP - General INTERNAL MEDICINE 04/03/20
--- OUTSIDE RECORDS SUMMARY | 2025-05-08 12:46 | XMS_ITS | Clinical Summary ---
Author Organization [facility] Address [address] [place] [phone] Care Team Providers Care Lens Gauger Name Role Phone Rui Arndt MD Primary [...] concerns Assessment & Plan (09/12/2024 4:34 PM STUD SHEEP FARMER): POM#4 s/p dCPC OS - IOP numerically [...] check at [facility] Mitchell at [facility] thereafter Assessment & Plan (06/13/2024 10:11 [...] week Assessment & Plan (12/07/2023 11:05 AM STUD SHEEP FARMER): POW1 status post (s/p) clinic diode left [...] check Assessment & Plan (11/30/2023 12:27 PM STUD SHEEP FARMER): Here for dCPC OS Assessment & Plan (11/23/2023 4:04 PM STUD SHEEP FARMER): NVG OS H/o BRVO OS S/p SNEHAL [...] on file Legal Sex Male 8:16 AM STUD SHEEP FARMER Gender Identity Not on file Sexual Orientation [...] ( season) 2024, 11/29/2020 Influenza Vaccine (#1) 2025 Pneumococcal vaccine 65+ Completed 06/18/2017, 06/08 Insurance [facility] MEDICARE ADVANTAGE [facility] Address: [facility] [address] [place] [address] [facility] MEDICARE ADVANTAGE [facility] Address: [address] [address] [place] [address] Care Teams Lens Gauger Relationship Specialty [place] [address] [place] [address] [place] [address] PCP - General Internal Medicine 11/22/23
--- OUTSIDE RECORDS SUMMARY | 2025-05-08 12:46 | XMS_ITS | Referral Summary ---
Author Organization [facility] Address [address] [place] [address] Care Team Providers Care Process Owner Name Role Phone Rui Arndt MD Primary [...] concerns Assessment & Plan (09/12/2024 4:34 PM BOBBIN MARKER): POM#4 s/p dCPC OS - IOP numerically [...] check at [facility] Mitchell at [facility] thereafter Assessment & Plan (06/13/2024 10:11 [...] week Assessment & Plan (12/07/2023 11:05 AM BOBBIN MARKER): POW1 status post (s/p) clinic diode left [...] check Assessment & Plan (11/30/2023 12:27 PM BOBBIN MARKER): Here for dCPC OS Assessment & Plan (11/23/2023 4:04 PM BOBBIN MARKER): NVG OS H/o BRVO OS S/p SNEHAL [...] on file Legal Sex Male 8:16 AM BOBBIN MARKER Gender Identity Not on file Sexual Orientation Not on file Plan of Treatment Not on file Insurance [facility] MEDICARE ADVANTAGE [facility] MEDICARE Address: [address] [address] [place] [address] [employer] MEDICARE ADVANTAGE [facility] MEDICARE Address: [address] [address] [place] [address] Care Teams Process Owner Relationship Specialty Start Date End Date Rui Arndt MD [address] [place] [address] DEPT [place] [address] PCP - General Internal Medicine 11/22/23
--- OUTSIDE RECORDS SUMMARY | 2025-05-08 12:46 | XMS_ITS | Clinical Summary ---
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 Gender Identity Not on file Sexual Orientation Not on file Plan of Treatment Health Maintenance Due Date Last Done Comments Hepatitis C Virus (HCV) Screening 1950 TdaP Immunization 1950 Cologuard 1996 Colonoscopy 1996 Colorectal Cancer Screening 1996 Immunochemical Fecal Occult Blood 1996 Zoster Immunization (1 of 2) 2001 SARS-COV-2 Immunization ( season) 2024 12/20/2020, 11/29/2020 Influenza Immunization (#1) 2025 Respiratory Syncytial Virus (RSV) Immunization (Adult) (1 - 1-dose 75+ series) 2026 Pneumococcal Immunization (5 0+ years) Completed 06/18/2017, 06/26/2016 Hepatitis B Immunization Aged Out No longer eligible based on patient's age to complete this topic Human Papillomavirus (HPV) Immunization Aged Out No longer eligible b ased on patient's age to complete this topic Meningococcal Immunization (ACWY) Aged Out No longer eligible b ased on patient's age to complete this topic Rotavirus Immunization Aged Out No lo nger eligible based on patient's age to complete this topic
--- OUTSIDE RECORDS SUMMARY | 2025-05-08 12:46 | XMS_ITS | Clinical Summary ---
Author Organization [facility] Address [address] [place] [phone] Phone Care Team Providers Care Quality Assurance/R&D Lab Technician Name Role Phone Joey Arndt MD Primary Care Provider [phone] Allergies No known active allergies Medications clopidogrel [...] Comments Blood Pressure 136/80 09/18/2022 11:44 AM DEVELOPER PROVER UPHOLSTERING Pulse - - Temperature 36.2 C (97.1 F) 09/18/2022 11:44 AM DEVELOPER PROVER UPHOLSTERING Respiratory Rate 18 09/18/2022 11:44 AM DEVELOPER PROVER UPHOLSTERING Oxygen Saturation - - Inhaled Oxygen Concentration - - Weight 75.8 kg (167 lb) 09/18/2022 11:44 AM DEVELOPER PROVER UPHOLSTERING Height 177.8 cm (5' 10) 09/18/2022 11:44 AM DEVELOPER PROVER UPHOLSTERING Body Mass Index 23.96 09/18/2022 11:44 AM DEVELOPER PROVER UPHOLSTERING Plan of Treatment Health Maintenance Due Date Last Done Comments COVID-19 Vaccine (2023- season) 2024, 11/29/2020 Influenza Vaccine (#1) 2025 Pneumococcal PPSV23/PCV13 65 + Years / Low and Medium Risk Completed 06/18/2017, 06/26/2016 Insurance MEDICARE Care Teams Quality Assurance/R&D Lab Technician Relationship Specialty Start Date End Date Joey Arndt MD [address] [phone] PCP - General Internal Medicine 09/14/22
--- OUTSIDE RECORDS SUMMARY | 2025-05-08 12:46 | XMS_ITS | Encounter Summary ---
Author Organization [facility] Address [facility] [place] [address] Care Team Providers Care Cabin Equipment Supervisor Name Role Phone Rui Arndt MD Primary Care Provider [phone] Encounter Details Date Type Department Care Team (Late st Contact Info) Description 04/27/2014 Abstract [facility] CONVERSION [address] [place] [address] , Generic ConversionMD Social History Tobacco Use [...] on filedocumented in this encounter Care Teams Cabin Equipment Supervisor Relationship Specialty Start Date End Date Rui Arndt MD PCP - General INTERNAL MEDICINE 04/03/20 documented as of this encounter
[2025-05-08 14:03] LABS: Albumin Level 4.1 g/dL (3.5-5.1); Anion Gap 9 mmol/L (4-12); Blood Urea Nitrogen 14 mg/dL (9-20); Calcium 9.6 mg/dL (8.4-10.2); Carbon Dioxide 24 mmol/L (22-30); Chloride 108 mmol/L (98-107); Estimated Glomerular Filt Rate > 60; Glucose 156 mg/dL (65-110); Potassium 4.2 mmol/L (3.4-5.0); Sodium 141 mmol/L (137-145)
[2025-05-08 14:11] LABS: Total Protein Urine Random 52 mg/dL; Ur Ttl Prot Creatinine Ratio 1.07 mg/mg (0-0.20)
== END 2025-05-08 12:43 | disposition home or self-care (01) ==
PROVIDERS: PCP Internal Medicine; Visit Provider Internal Medicine Nephrology
DX: E11.29 Type 2 diabetes mellitus with other diabetic kidney complication (principal); I10 Essential (primary) hypertension; R80.8 Other proteinuria
CPT/HCPCS: 36415; 80069; 82570; 84156

== ENCOUNTER 2025-08-05 13:25 | Outpatient (CLI) | payer MEDICARE, SELFPAY ==
[2025-08-05 14:06] LABS: Hematocrit 50.4 % (42.0-52.0); Hemoglobin 16.8 g/dL (14.0-18.0); Mean Corpuscular HGB Conc 33.3 g/dl (32-36); Mean Corpuscular Hemoglobin 32.7 pg (26-34); Mean Corpuscular Volume 98.2 fl (80-100); Platelet Count Result 267 k/mm3 (150-375); Red Blood Count 5.13 M/mm3 (4.6-6.20); White Blood Count 9.5 K/mm3 (4.5-10.0)
[2025-08-05 14:26] LABS: Albumin Level 4.2 g/dL (3.5-5.1); Anion Gap 8 mmol/L (4-12); Blood Urea Nitrogen 16 mg/dL (9-20); Calcium 9.2 mg/dL (8.4-10.2); Carbon Dioxide 25 mmol/L (22-30); Chloride 108 mmol/L (98-107); Estimated Glomerular Filt Rate > 60; Glucose 126 mg/dL (65-110); Potassium 4.4 mmol/L (3.4-5.0); Sodium 141 mmol/L (137-145)
[2025-08-05 14:47] LABS: Total Protein Urine Random 169 mg/dL; Ur Ttl Prot Creatinine Ratio 2.56 mg/mg (0-0.20)
--- OUTSIDE RECORDS SUMMARY | 2025-08-05 14:56 | XMS_ITS | Clinical Summary ---
Author Organization [facility] Address [address] [place] [phone] Care Team Providers Care Communications Tower Climber Name Role Phone Rui Arndt MD Primary Care Provider [phone] Allergies No known active allergies Medications clopidogreL [...] concerns Assessment & Plan (09/12/2024 4:34 PM ASIAN ART CURATOR): POM#4 s/p dCPC OS - IOP numerically [...] check at [facility] With [facility] Mitchell at [facility] thereafter Assessment & Plan (06/13/2024 [...] week Assessment & Plan (12/07/2023 11:05 AM ASIAN ART CURATOR): POW1 status post (s/p) clinic diode left [...] check Assessment & Plan (11/30/2023 12:27 PM ASIAN ART CURATOR): Here for dCPC OS Assessment & Plan (11/23/2023 4:04 PM ASIAN ART CURATOR): NVG OS H/o BRVO OS S/p SNEHAL [...] History Date Comments Glaucoma Hypertension Diabetes mellitus CVA (cerebral vascular accident) (HCC) Hyperlipidemia Social History Tobacco Use Types Packs/Day Years Used Date Smoking Tobacco: Every Day Cigarettes Tobacco Cessation:Ready to Q uit: Not Asked; Counseling Given: Not Answered Sex and Gender Information Value Date Recorded Sex Assigned at Not on file Legal Sex Male 8:16 AM ASIAN ART CURATOR Gender Identity Not on file Sexual Orientation [...] Visit 65+ 2016 Covid-19 Vaccine ( season) 2025, 11/29/2020 Influenza Vaccine (#1) 2025 Pneumococcal vaccine 65+ Completed 06/18/2017, 06/08 Insurance [facility] [place] [address] [facility] ADVANT[facility] Care Teams Communications Tower Climber Relationship Specialty Start Date End Date Rui Arndt MD [address] [place] [address] DEPT [place] [address] PCP - General Internal Medicine 11/22/23
--- OUTSIDE RECORDS SUMMARY | 2025-08-05 14:56 | XMS_ITS | Clinical Summary ---
Author Organization [facility] Address [address] [place] [phone] Phone Care Team Providers Care Credit Control Assistant Name Role Phone Joey Arndt MD Primary Care Provider [phone] Allergies No known active allergies Medications clopidogrel [...] Atrial flutter 03/15/2009 Diabetes mellitus 03/15/2009 Tobacco use disorder 03/15/2009 Immunizations Immunization Administration Dates Next Due [...] Comments Blood Pressure 136/80 09/18/2022 11:44 AM ODD JOB WORKER Pulse - - Temperature 36.2 C (97.1 F) 09/18/2022 11:44 AM ODD JOB WORKER Respiratory Rate 18 09/18/2022 11:44 AM ODD JOB WORKER Oxygen Saturation - - Inhaled Oxygen Concentration - - Weight 75.8 kg (167 lb) 09/18/2022 11:44 AM ODD JOB WORKER Height 177.8 cm (5' 10) 09/18/2022 11:44 AM ODD JOB WORKER Body Mass Index 23.96 09/18/2022 11:44 AM ODD JOB WORKER Plan of Treatment Health Maintenance Due Date Last Done Comments COVID-19 Vaccine (2024- season) 2025, 11/29/2020 Influenza Vaccine (#1) 2025 Pneumococcal PPSV23/PCV13 65 + Years / Low and Medium Risk Completed 06/18/2017, 06/26/2016 Insurance MEDICARE Care Teams Credit Control Assistant Relationship Specialty Start Date End Date Joey Arndt MD [address] [phone] PCP - General Internal Medicine 09/14/22
--- OUTSIDE RECORDS SUMMARY | 2025-08-05 14:56 | XMS_ITS | Clinical Summary ---
Author Organization [facility] Care Team Providers Care Graduate Recruiter Name Role Phone Unavailable Primary Care Provider Unavailabl e Immunizations Immunization Administration Dates Next Due Covid-19, Mrna, Lnp-s, Pf, 30 Mcg/0.3 Ml Dose (P fizer) 12/20/2020,11/29/2020 Social History Tobacco Use Types Packs/Day Years Used Date Smoking Tobacco: Never Assessed Sex and Gender Information Value Date Recorded Sex Assigned at Not on file Legal Sex Male 3:15 PM DYE MIXER Gender Identity Not on file Sexual Orientation Not on file Plan of Treatment Health Maintenance Due Date Last Done Comments Hepatitis C Virus (HCV) Screening 1950 TdaP Immunization 1950 Cologuard 1996 Colonoscopy 1996 Colorectal Cancer Screening 1996 Immunochemical Fecal Occult Blood 1996 Zoster Immunization (1 of 2) 2001 Influenza Immunization (#1) 2025 SARS-COV-2 Immunization ( season) 2025 12/20/2020, 11/29/2020 Respiratory Syncytial Virus (RSV) Immunization [...]
== END 2025-08-05 13:26 | disposition home or self-care (01) ==
PROVIDERS: PCP Internal Medicine; Referring Provider Internal Medicine Nephrology; Visit Provider Internal Medicine
DX: E11.29 Type 2 diabetes mellitus with other diabetic kidney complication (principal); E11.65 Type 2 diabetes mellitus with hyperglycemia; Z79.4 Long term (current) use of insulin; Z71.3 Dietary counseling and surveillance; E78.5 Hyperlipidemia, unspecified; I10 Essential (primary) hypertension; R80.8 Other proteinuria
CPT/HCPCS: 36415; 80069; 82570; 84156; 85027

== ENCOUNTER 2025-09-07 13:38 | Outpatient (CLI) | payer MEDICARE, SELFPAY ==
[2025-09-07 14:15] LABS: Total Protein Urine Random 116 mg/dL; Ur Ttl Prot Creatinine Ratio 1.62 mg/mg (0-0.20)
[2025-09-07 14:16] LABS: Albumin Level 4.3 g/dL (3.5-5.1); Anion Gap 5 mmol/L (4-12); Blood Urea Nitrogen 17 mg/dL (9-20); Calcium 9.3 mg/dL (8.4-10.2); Carbon Dioxide 27 mmol/L (22-30); Chloride 107 mmol/L (98-107); Estimated Glomerular Filt Rate > 60; Glucose 139 mg/dL (65-110); Potassium 4.6 mmol/L (3.4-5.0); Sodium 139 mmol/L (137-145)
--- OUTSIDE RECORDS SUMMARY | 2025-09-07 14:44 | XMS_ITS | Clinical Summary ---
Author Organization [facility] Care Team Providers Care Pulp Roller Name Role Phone Unavailable Primary Care Provider Unavailabl e Immunizations Immunization Administration Dates Next Due Covid-19, Mrna, Lnp-s, Pf, 30 Mcg/0.3 Ml Dose (P fizer) 12/20/2020,11/29/2020 Social History Tobacco Use Types Packs/Day Years Used Date Smoking Tobacco: Never Assessed Sex and Gender Information Value Date Recorded Sex Assigned at Not on file Legal Sex Male 3:15 PM NATURAL HISTORY COLLECTIONS CURATOR Gender Identity Not on file Sexual [...]
--- OUTSIDE RECORDS SUMMARY | 2025-09-07 14:44 | XMS_ITS | Encounter Summary ---
Author Organization [facility] Address [facility] [place] [address] Care Team Providers Care Procedures Nurse Name Role Phone Rui Arndt MD Primary Care Provider [phone] Encounter Details Date Type Department Care Team (Late st Contact Info) Description 04/27/2014 Abstract [facility] CONVERSION [address] [place], [place] [id number] , Generic ConversionMD Social History Tobacco Use [...] on filedocumented in this encounter Care Teams Procedures Nurse Relationship Specialty Start Date End Date Rui Arndt MD PCP - General INTERNAL MEDICINE 04/03/20 documented as of this encounter
--- OUTSIDE RECORDS SUMMARY | 2025-09-07 14:44 | XMS_ITS | Clinical Summary ---
Author Organization [facility] Address [address] [place] [address] Care Team Providers Care Linen Worker Name Role Phone Rui Arndt MD Primary [...] concerns Assessment & Plan (09/12/2024 4:34 PM DRUM LOADER AND UNLOADER): POM#4 s/p dCPC OS - IOP numerically [...] check at [facility] With [facility] Mitchell at [facility] thereafter Assessment & Plan (06/13/2024 10:11 [...] week Assessment & Plan (12/07/2023 11:05 AM DRUM LOADER AND UNLOADER): POW1 status post (s/p) clinic diode left [...] check Assessment & Plan (11/30/2023 12:27 PM DRUM LOADER AND UNLOADER): Here for dCPC OS Assessment & Plan (11/23/2023 4:04 PM DRUM LOADER AND UNLOADER): NVG OS H/o BRVO OS S/p SNEHAL [...] on file Legal Sex Male 8:16 AM DRUM LOADER AND UNLOADER Gender Identity Not on file Sexual Orientation [...] Pneumococcal vaccine 65+ Completed 06/18/2017, 06/08 Insurance [employer] MEDICARE ADVANTAGE [facility] Address: [address] [address] [place] [address] [facility] MEDICARE ADVANTAGE [facility] Address: [address] [address] [place] [address] Care Teams Linen Worker Relationship Specialty Start Date End Date Rui Arndt MD [address] [place] [address] [place] [address] PCP - General Internal Medicine 11/22/23
--- OUTSIDE RECORDS SUMMARY | 2025-09-07 14:44 | XMS_ITS | Clinical Summary ---
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 Weakness 04/03/2020 Immunizations Immunization Administration Dates [...] No 04/03/2020 Social Connection and Isolation Panel Answer Date Recorded Frequency of Communication with Friends and Fami ly Never 04/03/2020 Frequency of Social Gatherings with Friends and Family Never 04/03/2020 Attends Caodaism Services Never 04/03 Active Member of Clubs or Organizations No 04/03/2020 Attends Club or Organization Meetings Not asked 04/03/2020 Marital Status 04/03/2020 Overall Financial Resource Strain (CARDIA) Answe r Date Recorded Difficulty of Paying Living Expenses Not hard at all 04/03/2020 [facility] [place] of Occupat ional Health - Occupational Stress [...] Comments Blood Pressure 120/70 10/14/2023 10:36 AM GLUE MACHINE OPERATOR Pulse 82 10/14/2023 10:36 AM GLUE MACHINE OPERATOR Temperature 36.7 C (98.1 F) 10/14/2023 10:36 AM GLUE MACHINE OPERATOR Respiratory Rate 18 10/14/2023 10:36 AM GLUE MACHINE OPERATOR Oxygen Saturation 100% 10/14/2023 10:36 AM GLUE MACHINE OPERATOR Inhaled Oxygen Concentration - - Weight 72.6 kg (160 lb) 10/14/2023 10:36 AM GLUE MACHINE OPERATOR Height 180.3 cm (5' 11) 10/14/2023 10:36 AM GLUE MACHINE OPERATOR Body Mass Index 22.32 10/14/2023 10:36 AM GLUE MACHINE OPERATOR Plan of Treatment Health Maintenance Due Date Last Done Comments Colorectal Cancer Screening Colonoscopy (10 Years) 1950 Hepatitis C 1969 DTaP, Tdap and Td Vaccines ( 1 - Tdap) 1970 Zoster Vaccines (1 of 2) 2001 Annual Medicare Wellness Visit 2016 COVID-19 Vaccine (3 - 2024-2 6 season) 2025 12/20/2020, 11/29/2020 Influenza Adult (#1) 2025 RSV Immunization or 60+ Years (1 - 1-dose 75+ series) 2026 Pneumococcal Vaccine: 50+ Years Completed 06/18/2017, 06/26/2016 Hepatitis A Vaccines Aged Out No long er eligible based on patient's age to complete this topic Meningococcal B Vaccine Aged Out No l onger eligible based on patient's age to complete this topic Meningococcal Vaccine Aged Out No emeli alcira eligible based on patient's age to complete this topic RSV Immunizations Under 20 Months Aged Out No longer eligible b ased on patient's age to complete this topic Insurance [facility] MEDICARE Advance Directives * Full Code (Latest Code Status on File) Date Activated Date Inactivated Comments 04/03/2020 4:59 PM 04/05/2020 4:13 PM Care Teams Cable Television Technician Relationship Specialty Start Date End Date Rui Arndt MD PCP - General INTERNAL MEDICINE 6/27/20
--- OUTSIDE RECORDS SUMMARY | 2025-09-07 14:44 | XMS_ITS | Clinical Summary ---
Author Organization [facility] Address [address] [place] [address] Phone Care Team Providers Care Boiler Plant Operator Name Role Phone Joey Arndt MD Primary Care Provider [phone] Allergies No known active allergies Medications clopidogrel [...] Comments Blood Pressure 136/80 09/18/2022 11:44 AM RACING MANAGER Pulse - - Temperature 36.2 C (97.1 F) 09/18/2022 11:44 AM RACING MANAGER Respiratory Rate 18 09/18/2022 11:44 AM RACING MANAGER Oxygen Saturation - - Inhaled Oxygen Concentration - - Weight 75.8 kg (167 lb) 09/18/2022 11:44 AM RACING MANAGER Height 177.8 cm (5' 10) 09/18/2022 11:44 AM RACING MANAGER Body Mass Index 23.96 09/18/2022 11:44 AM RACING MANAGER Plan of Treatment Health Maintenance Due Date Last Done Comments COVID-19 Vaccine (2024- season) 2025, 11/29/2020 Influenza Vaccine (#1) 2025 Pneumococcal PPSV23/PCV13 65 + Years / Low and Medium Risk Completed 06/18/2017, 06/26/2016 Insurance MEDICARE Care Teams Boiler Plant Operator Relationship Specialty Start Date End Date Joey Arndt MD [address] [phone] PCP - General Internal Medicine 09/14/22
== END 2025-09-07 13:39 | disposition home or self-care (01) ==
LOC: ANHLAB 13:39
PROVIDERS: PCP Internal Medicine; Visit Provider Internal Medicine Nephrology
DX: R80.8 Other proteinuria (principal); E11.29 Type 2 diabetes mellitus with other diabetic kidney complication
CPT/HCPCS: 36415; 80069; 82570; 84156